=== PATIENT | male | born 1945 | race Caucasian/White ===

== ENCOUNTER 2019-10-06 11:35 | Inpatient (IN) | payer OTHER, MEDICARE, BC ==
[2019-10-06 12:10] LABS: ANION GAP 17.1 mEq/L (7-13)
[2019-10-06] MEDS: Sodium Chloride 0.9% 10 ML Syringe FLUSH PRN (12:23)
[2019-10-06] MEDS ORDERED: Sodium Chloride 0.9% 1,000 ML IV ONE (12:27)
--- NOTE | 2019-10-06 12:32 | EDM.PDOC ---
ED HPI GENERAL MEDICAL PROBLEM - General Chief Complaint: General Stated Complaint: UNKNOWN Time Seen by Provider: 10/06/19 12:10 Source of Information: Reports: Patient, RN, RN Notes Reviewed History Limitations: Reports: No Limitations - History of Present Illness INITIAL COMMENTS - FREE TEXT/NARRATIVE: patient presents to the ER with complaint o since last Wednesday, headache, runny nose, cough, shortness of breath at times. Patient denies smoking, denies COPD, admits to having asthma. Patient states fever has gotten up to 103. patient denies any recent travel or exposure to anyone with COVID19. Patient states he has had burning with urination, as well as flank pain for the past few days. Onset: Gradual Generalized Pain Score (Numeric/FACES): 3 - Related Data Allergies Allergy/AdvReac Type Severity Reaction Status Date / Time No Known Allergies Allergy Verified 10/06/19 11:43 Home Meds: Home Meds Albuterol [Proventil HFA] 2 puff INH BID 10/06/19 [History] Budesonide/Formoterol Fumarate [Budesonide-Formoterol 160-4.5] 10.2 gm IH BID [History] Flunisolide 1 gm MC BID 10/06/19 [History] Latanoprost 1 drop EYEBOTH DAILY 10/06/19 [History] Omeprazole 20 mg PO DAILY 10/06/19 [History] Triamcinolone Acetonide [Triamcinolone Acetonide 0.5%] 15 gm .XX ASDIRECTED PRN 10/06/19 [History] metFORMIN [Glucophage XR] 1,000 mg PO DAILY 10/06/19 [History] Past Medical History HEENT History: Reports: Hard of Hearing, Impaired Vision 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 Cardiovascular History: Reports: Heart Valve Replacement, High Cholesterol Other Cardiovascular History: valvue replacement [id number] Respiratory History: Reports: Asthma Gastrointestinal History: Reports: GERD Genitourinary History: Reports: None Other Neuro History: Benign brain tumor/ Surgery 1982 and 1985 Psychiatric History: Reports: None Endocrine/Metabolic History: Reports: Diabetes, Type II Hematologic History: Reports: None Immunologic History: Reports: None Oncologic (Cancer) History: Reports: Prostate - Past Surgical History Other HEENT Surgeries/Procedures: Previous cleft lip surgery Other Cardiovascular Surgeries/Procedures: Trifecta bovine pericardial valve Social & Family History - Tobacco Use Smoking Status *Q: Never Smoker - Recreational Drug Use Recreational Drug Use: No ED ROS GENERAL - Review of Systems Review Of Systems: Comprehensive ROS is negative, except as noted in HPI. ED EXAM, GENERAL - Physical Exam Exam: See Below Exam Limited By: No Limitations General Appearance: Alert, WD/WN, No Apparent Distress Eye Exam: Bilateral Eye: EOMI, Normal Inspection Ears: Normal External Exam, Hearing Grossly Normal Nose: Normal Inspection, Other (post cleft lip repair) Throat/Mouth: Normal Inspection, Other (Post cleft lip/palate repair) Head: Atraumatic, Normocephalic Neck: Normal Inspection, Supple, Non-Tender, Full Range of Motion Respiratory/Chest: No Respiratory Distress, Lungs Clear, Normal Breath Sounds, No Accessory Muscle Use, Chest Non-Tender Cardiovascular: Normal Peripheral Pulses, Regular Rate, Rhythm, No Edema, No Gallop, No JVD, No Murmur, No Rub Peripheral Pulses: 2+: Radial (L), Radial (R) GI/Abdominal: Normal Bowel Sounds, Soft, Non-Tender, No Organomegaly, No Distention, No Abnormal Bruit, No Mass (Male) Exam: Deferred Rectal (Males) Exam: Deferred Back Exam: Normal Inspection, Full Range of Motion, CVA Tenderness (L), CVA Tenderness (R) Extremities: Normal Inspection, Normal Range of Motion, Non-Tender, Normal Capillary Refill, No Pedal Edema Neurological: Alert, Oriented, CN II-XII Intact, Normal Cognition, Normal Gait, Normal Reflexes, No Motor/Sensory Deficits Psychiatric: Normal Affect, Normal Mood Skin Exam: Warm, Dry, Intact, Normal Color, No Rash Lymphatic: No Adenopathy Course - Vital Signs Last Recorded V/S: Last Vital Signs Temp 100.3 F 10/06/19 11:44 Pulse 112 H 10/06/19 11:44 Resp 18 10/06/19 11:44 BP 136/69 10/06/19 11:44 Pulse Ox 98 10/06/19 11:44 - Orders/Labs/Meds Orders: Active Orders 24 hr Category Date Time Status Peripheral IV Care [RC] . DIRECTED Care 10/06/19 11:33 Active Chest wo Cont [CT] Urgent Exams 10/06/19 11:33 Taken CORONAVIRUS COVID-19 PCR PHL [MREF] Stat Lab 10/06/19 12:47 Received CULTURE BLOOD [BC] Stat Lab 10/06/19 11:45 Received CULTURE BLOOD [BC] Stat Lab 10/06/19 11:46 Received CULTURE URINE [RM] Stat Lab 10/06/19 12:01 Received D Dimer [D-DIMER QUANTITATIVE] [COAG] Stat Lab 10/06/19 11:45 Received INFLUENZA A+B AG SCREEN [RM] Stat Lab 10/06/19 11:32 Ordered LACTATE DEHYDROGENASE,LDH [CHEM] Stat Lab 10/06/19 11:45 Received Sodium Chloride 0.9% [Saline Flush] Med 10/06/19 11:33 Active 10 ml FLUSH ASDIRECTED PRN Blood Culture x2 Reflex Set [OM.PC] Stat Oth 10/06/19 11:32 Ordered Isolation [COMM] Routine Oth 10/06/19 11:33 Active Peripheral IV Insertion Adult [OM.PC] Stat Oth 10/06/19 11:32 Ordered Medication Orders Sodium Chloride (Saline Flush) 10 ml FLUSH ASDIRECTED PRN PRN Reason: Keep Vein Open Last Admin: 10/06/19 12:23 Dose: 10 ml Labs: Laboratory Tests 10/06/19 10/06/19 10/06/19 Range/Units 11:45 11:45 11:45 WBC 15.6 H (5.0-10.0) 10^3/uL RBC 4.49 L (4.6-6.2) 10^6/uL Hgb 13.8 L (14.0-18.0) g/dL Hct 39.3 L (40.0-54.0) % MCV 87.5 (80-100) fL MCH 30.7 (27.0-34.0) pg MCHC 35.1 H (33.0-35.0) g/dL Plt Count 183 (150-450) 10^3/uL Neut % (Auto) 94.8 H (42.2-75.2) % Lymph % (Auto) 1.7 L (20.5-50.1) % [place] % (Auto) 3.0 (2-8) % Eos % (Auto) 0.3 L (1.0-3.0) % Baso % (Auto) 0.2 (0.0-1.0) % Sodium 137 (136-145) mmol/L Potassium 4.1 (3.5-5.1) mmol/L Chloride 100 (98-107) mmol/L Carbon Dioxide 24 (21-32) mmol/L Anion Gap 17.1 H (7-13) mEq/L BUN 26 H (7-18) mg/dL Creatinine 1.26 (0.70-1.30) mg/dL Est Cr Clr Drug Dosing 51.50 mL/min Estimated GFR (MDRD) 56 BUN/Creatinine Ratio 20.6 (No establ ref range) Glucose 258 H (74-99) mg/dL Lactic Acid 2.7 H* (0.4-2.0) mmol/L Calcium 8.7 (8.5-10.1) mg/dL Total Bilirubin 0.4 (0.2-1.0) mg/dL AST 29 (15-37) U/L ALT 48 (16-63) U/L Alkaline Phosphatase 87 (46-116) U/L B-Natriuretic Peptide (0-100) pg/ml Total Protein 6.9 (6.4-8.2) g/dL Albumin 3.1 L (3.4-5.0) g/dL Globulin 3.8 Albumin/Globulin Ratio 0.82 Urine Color (YELLOW) Urine Appearance (CLEAR) Urine pH (5.0-9.0) Ur Specific [place] (1.005-1.030) Urine Protein (NEGATIVE) Urine Glucose (UA) (NEGATIVE) Urine Ketones (NEGATIVE) Urine Occult Blood (NEGATIVE) Urine Nitrite (NEGATIVE) Urine Bilirubin (NEGATIVE) Urine Urobilinogen (0.2-1.0) mg/dL Ur Leukocyte Esterase (NEGATIVE) Urine RBC /HPF Urine WBC (0-5/HPF) /HPF Ur Epithelial Cells (NOT SEEN) /HPF Amorphous Sediment (NOT SEEN) /HPF Urine Bacteria (0-FEW/HPF) /HPF Urine Mucus (NOT SEEN) /LPF 10/06/19 10/06/19 Range/Units 11:45 12:01 WBC (5.0-10.0) 10^3/uL RBC (4.6-6.2) 10^6/uL Hgb (14.0-18.0) g/dL Hct (40.0-54.0) % MCV (80-100) fL MCH (27.0-34.0) pg MCHC (33.0-35.0) g/dL Plt Count (150-450) 10^3/uL Neut % (Auto) (42.2-75.2) % Lymph % (Auto) (20.5-50.1) % [place] % (Auto) (2-8) % Eos % (Auto) (1.0-3.0) % Baso % (Auto) (0.0-1.0) % Sodium (136-145) mmol/L Potassium (3.5-5.1) mmol/L Chloride (98-107) mmol/L Carbon Dioxide (21-32) mmol/L Anion Gap (7-13) mEq/L BUN (7-18) mg/dL Creatinine (0.70-1.30) mg/dL Est Cr Clr Drug Dosing mL/min Estimated GFR (MDRD) BUN/Creatinine Ratio (No establ ref range) Glucose (74-99) mg/dL Lactic Acid (0.4-2.0) mmol/L Calcium (8.5-10.1) mg/dL Total Bilirubin (0.2-1.0) mg/dL AST (15-37) U/L ALT (16-63) U/L Alkaline Phosphatase (46-116) U/L B-Natriuretic Peptide 108 H (0-100) pg/ml Total Protein (6.4-8.2) g/dL Albumin (3.4-5.0) g/dL Globulin Albumin/Globulin Ratio Urine Color Dark yellow (YELLOW) Urine Appearance Cloudy (CLEAR) Urine pH 5.5 (5.0-9.0) Ur Specific [place] 1.025 (1.005-1.030) Urine Protein 100 H (NEGATIVE) Urine Glucose (UA) 500 H (NEGATIVE) Urine Ketones Trace H (NEGATIVE) Urine Occult Blood Large H (NEGATIVE) Urine Nitrite Positive H (NEGATIVE) Urine Bilirubin Negative (NEGATIVE) Urine Urobilinogen 0.2 (0.2-1.0) mg/dL Ur Leukocyte Esterase Small H (NEGATIVE) Urine RBC >100 H /HPF Urine WBC >100 H (0-5/HPF) /HPF Ur Epithelial Cells Few (NOT SEEN) /HPF Amorphous Sediment Not seen (NOT SEEN) /HPF Urine Bacteria Many H (0-FEW/HPF) /HPF Urine Mucus Not seen (NOT SEEN) /LPF Meds: Medications Generic Name Dose Route Start Last Admin Trade Name Freq PRN Reason Stop Dose Admin Sodium Chloride 10 ml 10/06/19 11:33 10/06/19 12:23 Saline Flush FLUSH 10 ml ASDIRECTED PRN Administration Keep Vein Open Discontinued Medications Generic Name Dose Route Start Last Admin Trade Name Freq PRN Reason Stop Dose Admin Sodium Chloride 1,000 mls @ 999 mls/hr 10/06/19 12:27 10/06/19 13:17 Normal Saline IV 10/06/19 13:27 250 mls/hr .BOLUS ONE Infusion Ceftriaxone Sodium 1 gm/ 50 mls @ 100 mls/hr 10/06/19 12:48 10/06/19 13:02 Sodium Chloride IV 10/06/19 13:17 100 mls/hr ONETIME ONE Administration - Radiology Interpretation Free Text/Narrative:: Chest CT wo contrast: FINDINGS: Lungs: No pneumonia or pulmonary edema. There is a 4 mm noncalcified nodule in the right upper lobe (series 5, image 11). Pleural space: No pleural effusion or pneumothorax. Heart: The heart is not enlarged. No pericardial effusion. There is coronary artery disease. 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 The descending thoracic aorta at the same level has a diameter of 2.5 cm. Prior aortic valve replacement. Lymph nodes: No pathologically enlarged lymph nodes. Bones/joints: Healed median sternotomy. Soft tissues: No acute soft tissue abnormality. IMPRESSION: 1. No pneumonia. 2. Right upper lobe nodule. For patients at low risk (minimal or absent history of smoking and of other known risk factors), no routine follow-up is indicated. For patients at high risk (history of smoking or of other known risk factors), consider optional CT at 12 months. (David et al. , Fleischner Society, 2017) Thank you for allowing us to participate in the care of your patient. Dictated and Authenticated by: Hipolito Mauricio MD 10/06/2019 12:27 PM Central Time ([place] & [place]) See rad report Departure - Departure Time of Disposition: 14:09 Disposition: Admitted As Inpatient 64 Condition: Fair Clinical Impression: UTI, Urinary tract infectious disease - Discharge Information *PRESCRIPTION DRUG MONITORING PROGRAM REVIEWED*: No *COPY OF PRESCRIPTION DRUG MONITORING REPORT IN PATIENT [place]: No Sepsis Event Note - Evaluation Sepsis Screening Result: No Definite Risk - Focused Exam Vital Signs: Vital Signs Temp Pulse Resp BP Pulse Ox 10/06/19 11:44 100.3 F 112 H 18 136/69 98 Date Exam was Performed: 10/06/19 Time Exam was Performed: 13:58 - My Orders Last 24 Hours: My Active Orders 10/06/19 11:32 INFLUENZA A+B AG SCREEN [RM] Stat Blood Culture x2 Reflex Set [OM.PC] Stat Peripheral IV Insertion Adult [OM.PC] Stat 10/06/19 11:33 Peripheral IV Care [RC] . DIRECTED Chest wo Cont [CT] Urgent Sodium Chloride 0.9% [Saline Flush] 10 ml FLUSH ASDIRECTED PRN Isolation [COMM] Routine 10/06/19 11:45 CULTURE BLOOD [BC] Stat D Dimer [D-DIMER QUANTITATIVE] [COAG] Stat LACTATE DEHYDROGENASE,LDH [CHEM] Stat 10/06/19 11:46 CULTURE BLOOD [BC] Stat 10/06/19 12:01 CULTURE URINE [RM] Stat 10/06/19 12:47 CORONAVIRUS COVID-19 PCR PHL [MREF] Stat - Assessment/Plan Last 24 Hours: My Active Orders 10/06/19 11:32 INFLUENZA A+B AG SCREEN [RM] Stat Blood Culture x2 Reflex Set [OM.PC] Stat Peripheral IV Insertion Adult [OM.PC] Stat 10/06/19 11:33 Peripheral IV Care [RC] . DIRECTED Chest wo Cont [CT] Urgent Sodium Chloride 0.9% [Saline Flush] 10 ml FLUSH ASDIRECTED PRN Isolation [COMM] Routine 10/06/19 11:45 CULTURE BLOOD [BC] Stat D Dimer [D-DIMER QUANTITATIVE] [COAG] Stat LACTATE DEHYDROGENASE,LDH [CHEM] Stat 10/06/19 11:46 CULTURE BLOOD [BC] Stat 10/06/19 12:01 CULTURE URINE [RM] Stat 10/06/19 12:47 CORONAVIRUS COVID-19 PCR PHL [MREF] Stat
[2019-10-06] MEDS ORDERED: cefTRIAXone 1 GM in Sodium Chloride 0.9% 50 ML IV ONE (12:48)
[2019-10-06] MEDS ORDERED: Ondansetron 4 MG/2 ML SDV IVPUSH PRN (14:47)
[2019-10-06] MEDS ORDERED: Albuterol 0.083% 2.5 MG/3 ML Neb Soln NEB PRN (14:47)
[2019-10-06] MEDS ORDERED: Magnesium Hydroxide 400 MG/5 ML Susp 30 ML Cup PO PRN (14:47)
[2019-10-06] MEDS ORDERED: Docusate Sodium 100 MG Cap PO PRN (14:47)
[2019-10-06] MEDS ORDERED: Azithromycin 500 MG in Sodium Chloride 0.9% 250 ML IV SCH (15:00)
--- NOTE | 2019-10-06 15:00 | PCM.HP ---
H&P History of Present Illness - General Date of Service: 10/06/19 Admit Problem/Dx: Admission Diagnosis/Problem Admission Diagnosis/Problem UTI, Urinary tract infectious disease Source of Information: Patient History Limitations: Reports: No Limitations - History of Present Illness Initial Comments - Free Text/Narative: Laya is a 74-year-old male with past medical history of diabetes type 2, asthma, recently diagnosis prostate cancer. He presented to the ED for evaluation fever, headache, runny nose, cough, shortness of breath x 4 to 5 days. Patient reportedly he has been well until 2 days ago and above started. He reports headache, fever on and off, chills on and off, runny nose, cough productive of whitish sputum and shortness of breath. No wheezing. Fevers is relieved with Tylenol. Denies sick contacts or recent travel. No myalgia, arthralgia. He denies abdominal pain, nausea, vomiting, diarrhea. No chest pain. He was seen in the outpatient setting and treated for flu. He says symptoms resolved and recurred today. He had a fever spike of 103F. He endorsed dysuria, frequency. No hematuria. He decided to come to the ED for further management. In the ED was tachycardic, temperature 100.3F. Labs revealed leukocytosis, WBC 16, low lymphocytes, d-dimer 2240, BUN elevated, crt1.26, lactic acid elevated at 2.7. LDH elevated at 194. Urine positive for nitrites CT chest without contrast negative for acute infiltrates. No groundglass opacities noted. Onset of Symptoms: Reports: Gradual Duration of Symptoms: Reports: Day(s): Location: Reports: Chest Quality: Reports: Ache Severity: Mild Improves with: Reports: None Worsens with: Reports: None Associated Symptoms: Reports: Cough, cough w sputum, Fever/Chills, Headaches, Shortness of Breath Generalized Pain Score (Numeric/FACES): 3 - Related Data Allergies/Adverse Reactions: Allergies Allergy/AdvReac Type Severity Reaction Status Date / Time No Known Allergies Allergy Verified 10/06/19 15:00 Home Medications: Home Meds Budesonide/Formoterol Fumarate [Budesonide-Formoterol 160-4.5] 2 puff IH BID [History] Finasteride 5 mg PO DAILY 10/06/19 [History] Latanoprost 1 drop EYEBOTH DAILY 10/06/19 [History] Multivitamin with Minerals [Multiple Vitamin] 1 tab PO DAILY 10/06/19 [History] Omeprazole 20 mg PO DAILY 10/06/19 [History] Propylene Glycol [Systane Complete] 1 drop EYEBOTH DAILY 10/06/19 [History] Ranitidine [Zantac] 300 mg PO DAILY 10/06/19 [History] atorvaSTATin Calcium [Atorvastatin Calcium] 5 mg PO BEDTIME 10/06/19 [History] metFORMIN HCl [Metformin HCl ER] 1,000 mg PO DAILY 10/06/19 [History] Past Medical History HEENT History: Reports: Hard of Hearing, Impaired Vision 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 Cardiovascular History: Reports: Heart Valve Replacement, High Cholesterol Other Cardiovascular History: valvue replacement [id number] Respiratory History: Reports: Asthma Gastrointestinal History: Reports: GERD Genitourinary History: Reports: None Other Neuro History: Benign brain tumor/ Surgery 1982 and 1985 Psychiatric History: Reports: None Endocrine/Metabolic History: Reports: Diabetes, Type II Hematologic History: Reports: None Immunologic History: Reports: None Oncologic (Cancer) History: Reports: Prostate - Past Surgical History Other HEENT Surgeries/Procedures: Previous cleft lip surgery Other Cardiovascular Surgeries/Procedures: Trifecta bovine pericardial valve Social & Family History - Tobacco Use Smoking Status *Q: Never Smoker - Recreational Drug Use Recreational Drug Use: No H&P Review of Systems - Review of Systems: Review Of Systems: See Below General: Reports: Fever, Chills, Weakness, Fatigue, Decreased Appetite HEENT: Reports: Headaches, Rhinitis, Sinus Congestion Pulmonary: Reports: Shortness of Breath, Cough, Sputum Cardiovascular: Reports: No Symptoms Gastrointestinal: Reports: No Symptoms Genitourinary: Reports: No Symptoms Musculoskeletal: Reports: No Symptoms Skin: Reports: No Symptoms Psychiatric: Reports: No Symptoms Neurological: Reports: No Symptoms Hematologic/Lymphatic: Reports: No Symptoms Immunologic: Reports: No Symptoms Exam - Exam Exam: See Below - Vital Signs Vital Signs: Last Vital Signs Temp 98.6 F 10/06/19 14:04 Pulse 86 10/06/19 14:04 Resp 18 10/06/19 14:04 BP 124/74 10/06/19 14:04 Pulse Ox 97 10/06/19 14:04 Weight: 161 lb 3.2 oz - Exam Quality Assessment: Supplemental Oxygen, DVT Prophylaxis General: Alert, Oriented, 4 HEENT: PERRLA, Hearing Intact, Mucosa Moist & [place], Nares Patent, Normal Nasal Septum, Posterior Pharynx Clear, Conjunctiva Clear, EOMI, EACs Clear, TMs Clear Neck: Supple, Trachea Midline, 2 Lungs: Clear to Auscultation, Normal Respiratory Effort Cardiovascular: Regular Rate, Regular Rhythm GI/Abdominal Exam: Normal Bowel Sounds, Soft, Non-Tender, No Organomegaly, No Distention, No Abnormal Bruit, No Mass, Pelvis Stable (Male) Exam: No Hernia, Normal Inspection, Normal Prostate, Circumcised Rectal (Males) Exam: Normal Exam, Normal Rectal Tone, Prostate Normal Back Exam: Normal Inspection, Full Range of Motion, NT Extremities: Normal Inspection, Normal Range of Motion, Non-Tender, No Pedal Edema, Normal Capillary Refill Skin: Warm, Dry, Intact Neurological: Cranial Nerves Intact, Reflexes Equal Bilateral Neuro Extensive - Mental Status: Alert, Oriented x3, Normal Mood/Affect, Normal Cognition Neuro Extensive - Motor, Sensory, Reflexes: CN II-XII Intact, Normal Gait, Normal Reflexes Psychiatric: Alert, Normal Affect, Normal Mood - Patient Data Lab Results Last 24 hrs: Laboratory Results - last 24 hr 10/06/19 10/06/19 10/06/19 Range/Units 11:45 11:45 11:45 WBC 15.6 H (5.0-10.0) 10^3/uL RBC 4.49 L (4.6-6.2) 10^6/uL Hgb 13.8 L (14.0-18.0) g/dL Hct 39.3 L (40.0-54.0) % MCV 87.5 (80-100) fL MCH 30.7 (27.0-34.0) pg MCHC 35.1 H (33.0-35.0) g/dL Plt Count 183 (150-450) 10^3/uL Neut % (Auto) 94.8 H (42.2-75.2) % Lymph % (Auto) 1.7 L (20.5-50.1) % [place] % (Auto) 3.0 (2-8) % Eos % (Auto) 0.3 L (1.0-3.0) % Baso % (Auto) 0.2 (0.0-1.0) % D-Dimer, Quantitative (0-400) ng/mL Sodium 137 (136-145) mmol/L Potassium 4.1 (3.5-5.1) mmol/L Chloride 100 (98-107) mmol/L Carbon Dioxide 24 (21-32) mmol/L Anion Gap 17.1 H (7-13) mEq/L BUN 26 H (7-18) mg/dL Creatinine 1.26 (0.70-1.30) mg/dL Est Cr Clr Drug Dosing 51.50 mL/min Estimated GFR (MDRD) 56 BUN/Creatinine Ratio 20.6 (No establ ref range) Glucose 258 H (74-99) mg/dL Lactic Acid 2.7 H* (0.4-2.0) mmol/L Calcium 8.7 (8.5-10.1) mg/dL Total Bilirubin 0.4 (0.2-1.0) mg/dL AST 29 (15-37) U/L ALT 48 (16-63) U/L Alkaline Phosphatase 87 (46-116) U/L Lactate Dehydrogenase (85-227) U/L B-Natriuretic Peptide (0-100) pg/ml Total Protein 6.9 (6.4-8.2) g/dL Albumin 3.1 L (3.4-5.0) g/dL Globulin 3.8 Albumin/Globulin Ratio 0.82 Urine Color (YELLOW) Urine Appearance (CLEAR) Urine pH (5.0-9.0) Ur Specific [place] (1.005-1.030) Urine Protein (NEGATIVE) Urine Glucose (UA) (NEGATIVE) Urine Ketones (NEGATIVE) Urine Occult Blood (NEGATIVE) Urine Nitrite (NEGATIVE) Urine Bilirubin (NEGATIVE) Urine Urobilinogen (0.2-1.0) mg/dL Ur Leukocyte Esterase (NEGATIVE) Urine RBC /HPF Urine WBC (0-5/HPF) /HPF Ur Epithelial Cells (NOT SEEN) /HPF Amorphous Sediment (NOT SEEN) /HPF Urine Bacteria (0-FEW/HPF) /HPF Urine Mucus (NOT SEEN) /LPF 10/06/19 10/06/19 10/06/19 Range/Units 11:45 11:45 11:45 WBC (5.0-10.0) 10^3/uL RBC (4.6-6.2) 10^6/uL Hgb (14.0-18.0) g/dL Hct (40.0-54.0) % MCV (80-100) fL MCH (27.0-34.0) pg MCHC (33.0-35.0) g/dL Plt Count (150-450) 10^3/uL Neut % (Auto) (42.2-75.2) % Lymph % (Auto) (20.5-50.1) % [place] % (Auto) (2-8) % Eos % (Auto) (1.0-3.0) % Baso % (Auto) (0.0-1.0) % D-Dimer, Quantitative 2240 H (0-400) ng/mL Sodium (136-145) mmol/L Potassium (3.5-5.1) mmol/L Chloride (98-107) mmol/L Carbon Dioxide (21-32) mmol/L Anion Gap (7-13) mEq/L BUN (7-18) mg/dL Creatinine (0.70-1.30) mg/dL Est Cr Clr Drug Dosing mL/min Estimated GFR (MDRD) BUN/Creatinine Ratio (No establ ref range) Glucose (74-99) mg/dL Lactic Acid (0.4-2.0) mmol/L Calcium (8.5-10.1) mg/dL Total Bilirubin (0.2-1.0) mg/dL AST (15-37) U/L ALT (16-63) U/L Alkaline Phosphatase (46-116) U/L Lactate Dehydrogenase 194 (85-227) U/L B-Natriuretic Peptide 108 H (0-100) pg/ml Total Protein (6.4-8.2) g/dL Albumin (3.4-5.0) g/dL Globulin Albumin/Globulin Ratio Urine Color (YELLOW) Urine Appearance (CLEAR) Urine pH (5.0-9.0) Ur Specific [place] (1.005-1.030) Urine Protein (NEGATIVE) Urine Glucose (UA) (NEGATIVE) Urine Ketones (NEGATIVE) Urine Occult Blood (NEGATIVE) Urine Nitrite (NEGATIVE) Urine Bilirubin (NEGATIVE) Urine Urobilinogen (0.2-1.0) mg/dL Ur Leukocyte Esterase (NEGATIVE) Urine RBC /HPF Urine WBC (0-5/HPF) /HPF Ur Epithelial Cells (NOT SEEN) /HPF Amorphous Sediment (NOT SEEN) /HPF Urine Bacteria (0-FEW/HPF) /HPF Urine Mucus (NOT SEEN) /LPF 10/06/19 Range/Units 12:01 WBC (5.0-10.0) 10^3/uL RBC (4.6-6.2) 10^6/uL Hgb (14.0-18.0) g/dL Hct (40.0-54.0) % MCV (80-100) fL MCH (27.0-34.0) pg MCHC (33.0-35.0) g/dL Plt Count (150-450) 10^3/uL Neut % (Auto) (42.2-75.2) % Lymph % (Auto) (20.5-50.1) % [place] % (Auto) (2-8) % Eos % (Auto) (1.0-3.0) % Baso % (Auto) (0.0-1.0) % D-Dimer, Quantitative (0-400) ng/mL Sodium (136-145) mmol/L Potassium (3.5-5.1) mmol/L Chloride (98-107) mmol/L Carbon Dioxide (21-32) mmol/L Anion Gap (7-13) mEq/L BUN (7-18) mg/dL Creatinine (0.70-1.30) mg/dL Est Cr Clr Drug Dosing mL/min Estimated GFR (MDRD) BUN/Creatinine Ratio (No establ ref range) Glucose (74-99) mg/dL Lactic Acid (0.4-2.0) mmol/L Calcium (8.5-10.1) mg/dL Total Bilirubin (0.2-1.0) mg/dL AST (15-37) U/L ALT (16-63) U/L Alkaline Phosphatase (46-116) U/L Lactate Dehydrogenase (85-227) U/L B-Natriuretic Peptide (0-100) pg/ml Total Protein (6.4-8.2) g/dL Albumin (3.4-5.0) g/dL Globulin Albumin/Globulin Ratio Urine Color Dark yellow (YELLOW) Urine Appearance Cloudy (CLEAR) Urine pH 5.5 (5.0-9.0) Ur Specific [place] 1.025 (1.005-1.030) Urine Protein 100 H (NEGATIVE) Urine Glucose (UA) 500 H (NEGATIVE) Urine Ketones Trace H (NEGATIVE) Urine Occult Blood Large H (NEGATIVE) Urine Nitrite Positive H (NEGATIVE) Urine Bilirubin Negative (NEGATIVE) Urine Urobilinogen 0.2 (0.2-1.0) mg/dL Ur Leukocyte Esterase Small H (NEGATIVE) Urine RBC >100 H /HPF Urine WBC >100 H (0-5/HPF) /HPF Ur Epithelial Cells Few (NOT SEEN) /HPF Amorphous Sediment Not seen (NOT SEEN) /HPF Urine Bacteria Many H (0-FEW/HPF) /HPF Urine Mucus Not seen (NOT SEEN) /LPF Result Diagrams: 10/06/19 11:45 10/06/19 11:45 - Problem List (1) Sepsis SNOMED Code(s): 71916209 ICD Code: A41.9 - SEPSIS, UNSPECIFIED ORGANISM Status: Acute Current Visit: Yes (2) Upper respiratory infection with cough and congestion SNOMED Code(s): 00772608, 586471744 ICD Code: J06.9 - ACUTE UPPER RESPIRATORY INFECTION, UNSPECIFIED Status: Acute Current Visit: Yes Problem List Initiated/Reviewed/Updated: Yes Orders Last 24hrs: Active Orders 24 hr Category Date Time Status Admission Diagnosis [ADT] Stat ADT 10/06/19 13:37 Ordered Admission Status [Patient Status] [ADT] Routine ADT 10/06/19 13:37 Active Ambulate [RC] ASDIRECTED Care 10/06/19 14:47 Ordered Blood Glucose Check, Bedside [RC] QIDACANDBED Care 10/06/19 14:47 Ordered Height and Weight [RC] DAILY Care 10/06/19 14:47 Ordered Intake and Output [RC] QSHIFT Care 10/06/19 14:47 Ordered Notify Provider Vital Signs [RC] ASDIRECTED Care 10/06/19 14:48 Ordered Oxygen Therapy [RC] PRN Care 10/06/19 14:47 Ordered Peripheral IV Care [RC] 09,21 Care 10/06/19 11:33 Active Pulse Oximetry [RC] PRN Care 10/06/19 14:48 Ordered RT Aerosol Therapy [RC] ASDIRECTED Care 10/06/19 14:50 Ordered VTE/DVT Education [RC] PER UNIT ROUTINE Care 10/06/19 14:47 Ordered Vital Signs [RC] Q4H Care 10/06/19 14:47 Ordered OT Evaluation and Treatment [CONS] Routine Cons 10/06/19 14:47 Ordered PT Evaluation and Treatment [CONS] Routine Cons 10/06/19 14:47 Ordered Respiratory Care Assess and Treatment [CONS] Routine Cons 10/06/19 14:47 Ordered Consistent Carbohydrate Diet [DIET] Diet 10/06/19 Dinner Ordered CBC W/O DIFF,HEMOGRAM [HEME] DAILY Lab 10/07/19 07:00 Ordered CBC W/O DIFF,HEMOGRAM [HEME] DAILY Lab 10/08/19 07:00 Ordered CBC W/O DIFF,HEMOGRAM [HEME] DAILY Lab 10/09/19 07:00 Ordered COMPREHENSIVE METABOLIC PN,CMP [CHEM] DAILY Lab 10/07/19 07:00 Ordered COMPREHENSIVE METABOLIC PN,CMP [CHEM] DAILY Lab 10/08/19 07:00 Ordered COMPREHENSIVE METABOLIC PN,CMP [CHEM] DAILY Lab 10/09/19 07:00 Ordered CORONAVIRUS COVID-19 PCR PHL [MREF] Stat Lab 10/06/19 12:47 Received CRP, HIGH SENSITIVITY [REF] Routine Lab 10/06/19 14:45 Ordered CULTURE BLOOD [BC] Stat Lab 10/06/19 11:45 Received CULTURE BLOOD [BC] Stat Lab 10/06/19 11:46 Received CULTURE URINE [RM] Stat Lab 10/06/19 12:01 Received FERRITIN [CHEM] Routine Lab 10/06/19 14:45 Ordered LACTIC ACID [CHEM] Q4H Lab 10/06/19 18:00 Ordered LACTIC ACID [CHEM] Q4H Lab 10/06/19 22:00 Ordered MAGNESIUM [CHEM] Routine Lab 10/06/19 14:47 Ordered PHOSPHORUS [CHEM] Routine Lab 10/06/19 14:47 Ordered PROCALCITONIN [REF] Routine Lab 10/06/19 14:46 Ordered Acetaminophen [Tylenol] Med 10/06/19 14:47 Ordered 650 mg PO Q4H PRN Albuterol [Proventil Neb Soln] Med 10/06/19 14:47 Ordered 2.5 mg NEB Q4H PRN Azithromycin [Zithromax] 500 mg Med 10/06/19 15:00 Ordered Sodium Chloride 0.9% [Normal Saline (AdvBag)] 250 ml IV Q24H Docusate Sodium [Colace] Med 10/06/19 14:47 Ordered 100 mg PO BID PRN Enoxaparin [Lovenox] Med 10/07/19 09:00 Ordered 40 mg SUBCUT DAILY Insulin Glarg,Human.Rec.Analog [LantUS] Med 10/06/19 21:00 Ordered 10 unit SUBCUT BEDTIME Insulin Lispro [HumaLOG] Med 10/06/19 18:00 Ordered 5 unit SUBCUT WITHMEALSANDBED Magnesium Hydroxide [Milk of Magnesia] Med 10/06/19 14:47 Ordered 30 ml PO Q12H PRN Ondansetron [Zofran] Med 10/06/19 14:47 Ordered 4 mg IVPUSH Q6H PRN Sodium Chloride 0.9% [Normal Saline] 1,000 ml Med 10/06/19 15:00 Ordered IV ASDIRECTED Sodium Chloride 0.9% [Saline Flush] Med 10/06/19 11:33 Active 10 ml FLUSH ASDIRECTED PRN cefTRIAXone [Rocephin] 1 gm Med 10/07/19 07:00 Ordered Sodium Chloride 0.9% [Normal Saline] 100 ml IV Q24H Blood Culture x2 Reflex Set [OM.PC] Stat Ot 10/06/19 11:32 Ordered Isolation [COMM] Routine Oth 10/06/19 11:33 Active Peripheral IV Insertion Adult [OM.PC] Stat Oth 10/06/19 11:32 Ordered Resuscitation Status Routine Resus Stat 10/06/19 14:47 Ordered Medication Orders Acetaminophen (Tylenol) 650 mg PO Q4H PRN PRN Reason: Pain (Mild 1-3)/fever Albuterol (Proventil Neb Soln) 2.5 mg NEB Q4H PRN PRN Reason: shortness of breath/wheezing Docusate Sodium (Colace) 100 mg PO BID PRN PRN Reason: Constipation Enoxaparin Sodium (Lovenox) 40 mg SUBCUT DAILY [place] Sodium Chloride (Normal Saline) 1,000 mls @ 100 mls/hr IV ASDIRECTED [place] Azithromycin 500 mg/ Sodium (Chloride) 250 mls @ 250 mls/hr IV Q24H [place] Ceftriaxone Sodium 1 gm/ (Sodium Chloride) 100 mls @ 200 mls/hr IV Q24H [place] Insulin Glargine (Lantus) 10 unit SUBCUT BEDTIME [place] Insulin Human Lispro (Humalog) 5 unit SUBCUT WITHMEALSANDBED [place] Magnesium Hydroxide (Milk Of Magnesia) 30 ml PO Q12H PRN PRN Reason: Constipation Ondansetron HCl (Zofran) 4 mg IVPUSH Q6H PRN PRN Reason: Nausea/Vomiting Sodium Chloride (Saline Flush) 10 ml FLUSH ASDIRECTED PRN PRN Reason: Keep Vein Open Last Admin: 10/06/19 12:23 Dose: 10 ml Assessment/Plan Comment:: #Acute upper respiratory infection -Patient presented to the ED for evaluation of nasal congestion, productive cough, shortness of headache and fever up -He denies myalgia, arthralgia -Resent influenza test was negative -He has leukocytosis, low lymphocytes, elevated LDH, d-dimer elevated -Chest CT no infiltrates. No groundglass opacities in -Admit to medical floor -Nasopharyngeal swab for COVID-19 PCR -Send for CRP, ferritin level -Contact and droplet isolation -Supportive care; IV fluid, supplemental oxygen -Azithromycin #Sepsis due to UTI -Evidenced by tachycardia, tachypnea, fever, leukocytosis, elevated lactic acid , UA positive for nitrites -Sepsis protocol -Serial lactic acid every 4 hourly 2 -IV fluids -Blood culture, urine culture -IV ceftriaxone #Type 2 diabetes -Suboptimally controlled -Patient on metformin. Hold for now -Sliding scale insulin -Glargine daily at bedtime -Accu-Cheks -Hypoglycemia. #History of asthma -Not in exacerbation -Albuterol every 4 hours when necessary #History of prostate cancer -No acute tissue #Carbohydrate consistent #DNI/DNR
[2019-10-06] MEDS ORDERED: Albuterol 6.7 GM Inhaler INH PRN (15:52)
[2019-10-06] MEDS ORDERED: Sodium Chloride 0.9% 1,000 ML IV SCH (16:00)
[2019-10-06] MEDS: Sodium Chloride 0.9% 1,000 ML IV SCH (17:35)
[2019-10-06] MEDS: Insulin Lispro 100 Units/ML 3 ML Vial SUBCUT SCH ×2 (17:50→21:19)
[2019-10-06] MEDS: Acetaminophen 325 MG Tab PO PRN (17:54)
[2019-10-06] MEDS: Formoterol/Mometasone 200-5 MCG 8.8 GM Inhaler IH SCH (21:18)
[2019-10-06] MEDS: Insulin Glarg,Human.Rec.Analog 100 Unit/ML SUBCUT SCH (21:19)
[2019-10-06] MEDS: atorvaSTATin 10 MG Tab PO SCH (21:21)
[2019-10-07] MEDS: Piperacillin/Tazobactam 3.375 GM in Sodium Chloride 0.9% 100 ML IV SCH ×5 (00:37→23:32)
[2019-10-07] MEDS: Acetaminophen 325 MG Tab PO PRN ×3 (00:45→20:50)
[2019-10-07] MEDS: Sodium Chloride 0.9% 1,000 ML IV SCH ×2 (03:35→14:17)
[2019-10-07] MEDS: Omeprazole 20 MG Cap.CR PO SCH (05:52)
[2019-10-07 07:15] LABS: ANION GAP 12.8 mEq/L (7-13)
[2019-10-07] MEDS: Insulin Lispro 100 Units/ML 3 ML Vial SUBCUT SCH ×4 (08:28→21:58)
[2019-10-07] MEDS: Formoterol/Mometasone 200-5 MCG 8.8 GM Inhaler IH SCH ×2 (08:31→20:43)
[2019-10-07] MEDS: Enoxaparin 40 MG/0.4 ML Syringe SUBCUT SCH (08:42)
[2019-10-07] MEDS: Finasteride 5 MG Tab PO SCH (08:42)
[2019-10-07] MEDS: Famotidine 20 MG Tab PO SCH ×2 (08:42→20:42)
[2019-10-07] MEDS ORDERED: Latanoprost 0.005% Ophth Soln 2.5 ML Bottle EYEBOTH SCH (09:00)
[2019-10-07] MEDS ORDERED: cefTRIAXone 1 GM in Sodium Chloride 0.9% 100 ML IV SCH (12:00)
--- NOTE | 2019-10-07 12:14 | PCM.PN ---
- General Info Date of Service: 10/07/19 Admission Dx/Problem (Free Text): Admission Diagnosis/Problem Admission Diagnosis/Problem UTI, Urinary tract infectious disease Subjective Update: Laya is a 74-year-old male with past medical history of diabetes type 2, asthma, recently diagnosis prostate cancer. He presented to the ED for evaluation fever, headache, runny nose, cough, shortness of breath x 4 to 5 days. He was found to have sepsis due to UTI with bacteremia. CT chest was negative. Blood culture was a 2 for gram-negative shira. Urine culture positive for gram-negative rods. He was started on IV Zosyn. Today patient was seen and examined. He is doing okay. He endorsed feeling better. He has no new complaints. He denies fever, chills, nausea, vomiting. He has no cough or shortness of breath. Says his respiratory symptoms have improved. Storm virus COVID-19 PCR pending Functional Status: Reports: Pain Controlled - Review of Systems General: Reports: No Symptoms HEENT: Reports: No Symptoms Pulmonary: Reports: No Symptoms Cardiovascular: Reports: No Symptoms Gastrointestinal: Reports: No Symptoms Genitourinary: Reports: No Symptoms Musculoskeletal: Reports: No Symptoms Skin: Reports: No Symptoms Neurological: Reports: No Symptoms Psychiatric: Reports: No Symptoms - Patient Data Vitals - Most Recent: Last Vital Signs Temp 98.2 F 10/07/19 08:00 Pulse 73 10/07/19 08:00 Resp 20 10/07/19 08:00 BP 113/66 10/07/19 08:00 Pulse Ox 97 10/07/19 08:00 Weight - Most Recent: 146 lb I&O - Last 24 Hours: Intake & Output 10/06/19 10/07/19 10/07/19 22:59 06:59 14:59 Intake Total 240 1700 300 Balance 240 1700 300 Lab Results Last 24 Hours: Laboratory Results - last 24 hr 10/06/19 10/06/19 10/06/19 Range/Units 11:45 11:45 11:45 WBC (5.0-10.0) 10^3/uL RBC (4.6-6.2) 10^6/uL Hgb (14.0-18.0) g/dL Hct (40.0-54.0) % MCV (80-100) fL MCH (27.0-34.0) pg MCHC (33.0-35.0) g/dL Plt Count (150-450) 10^3/uL D-Dimer, Quantitative (0-400) ng/mL Sodium 137 (136-145) mmol/L Potassium 4.1 (3.5-5.1) mmol/L Chloride 100 (98-107) mmol/L Carbon Dioxide 24 (21-32) mmol/L Anion Gap 17.1 H (7-13) mEq/L BUN 26 H (7-18) mg/dL Creatinine 1.26 (0.70-1.30) mg/dL Est Cr Clr Drug Dosing 51.50 mL/min Estimated GFR (MDRD) 56 BUN/Creatinine Ratio 20.6 (No establ ref range) Glucose 258 H (74-99) mg/dL POC Glucose (83-110) mg/dl Lactic Acid 2.7 H* (0.4-2.0) mmol/L Calcium 8.7 (8.5-10.1) mg/dL Phosphorus (2.6-4.7) mg/dL Magnesium (1.8-2.4) mg/dL Ferritin (26-388) mg/mL Total Bilirubin 0.4 (0.2-1.0) mg/dL AST 29 (15-37) U/L ALT 48 (16-63) U/L Alkaline Phosphatase 87 (46-116) U/L Lactate Dehydrogenase (85-227) U/L C-Reactive Protein (0.0-0.9) mg/dL B-Natriuretic Peptide 108 H (0-100) pg/ml Total Protein 6.9 (6.4-8.2) g/dL Albumin 3.1 L (3.4-5.0) g/dL Globulin 3.8 Albumin/Globulin Ratio 0.82 Urine Color (YELLOW) Urine Appearance (CLEAR) Urine pH (5.0-9.0) Ur Specific [place] (1.005-1.030) Urine Protein (NEGATIVE) Urine Glucose (UA) (NEGATIVE) Urine Ketones (NEGATIVE) Urine Occult Blood (NEGATIVE) Urine Nitrite (NEGATIVE) Urine Bilirubin (NEGATIVE) Urine Urobilinogen (0.2-1.0) mg/dL Ur Leukocyte Esterase (NEGATIVE) Urine RBC /HPF Urine WBC (0-5/HPF) /HPF Ur Epithelial Cells (NOT SEEN) /HPF Amorphous Sediment (NOT SEEN) /HPF Urine Bacteria (0-FEW/HPF) /HPF Urine Mucus (NOT SEEN) /LPF 10/06/19 10/06/19 10/06/19 Range/Units 11:45 11:45 11:45 WBC (5.0-10.0) 10^3/uL RBC (4.6-6.2) 10^6/uL Hgb (14.0-18.0) g/dL Hct (40.0-54.0) % MCV (80-100) fL MCH (27.0-34.0) pg MCHC (33.0-35.0) g/dL Plt Count (150-450) 10^3/uL D-Dimer, Quantitative 2240 H (0-400) ng/mL Sodium (136-145) mmol/L Potassium (3.5-5.1) mmol/L Chloride (98-107) mmol/L Carbon Dioxide (21-32) mmol/L Anion Gap (7-13) mEq/L BUN (7-18) mg/dL Creatinine (0.70-1.30) mg/dL Est Cr Clr Drug Dosing mL/min Estimated GFR (MDRD) BUN/Creatinine Ratio (No establ ref range) Glucose (74-99) mg/dL POC Glucose (83-110) mg/dl Lactic Acid (0.4-2.0) mmol/L Calcium (8.5-10.1) mg/dL Phosphorus (2.6-4.7) mg/dL Magnesium (1.8-2.4) mg/dL Ferritin 248 (26-388) mg/mL Total Bilirubin (0.2-1.0) mg/dL AST (15-37) U/L ALT (16-63) U/L Alkaline Phosphatase (46-116) U/L Lactate Dehydrogenase 194 (85-227) U/L C-Reactive Protein (0.0-0.9) mg/dL B-Natriuretic Peptide (0-100) pg/ml Total Protein (6.4-8.2) g/dL Albumin (3.4-5.0) g/dL Globulin Albumin/Globulin Ratio Urine Color (YELLOW) Urine Appearance (CLEAR) Urine pH (5.0-9.0) Ur Specific [place] (1.005-1.030) Urine Protein (NEGATIVE) Urine Glucose (UA) (NEGATIVE) Urine Ketones (NEGATIVE) Urine Occult Blood (NEGATIVE) Urine Nitrite (NEGATIVE) Urine Bilirubin (NEGATIVE) Urine Urobilinogen (0.2-1.0) mg/dL Ur Leukocyte Esterase (NEGATIVE) Urine RBC /HPF Urine WBC (0-5/HPF) /HPF Ur Epithelial Cells (NOT SEEN) /HPF Amorphous Sediment (NOT SEEN) /HPF Urine Bacteria (0-FEW/HPF) /HPF Urine Mucus (NOT SEEN) /LPF 10/06/19 10/06/19 10/06/19 Range/Units 11:45 12:01 16:30 WBC (5.0-10.0) 10^3/uL RBC (4.6-6.2) 10^6/uL Hgb (14.0-18.0) g/dL Hct (40.0-54.0) % MCV (80-100) fL MCH (27.0-34.0) pg MCHC (33.0-35.0) g/dL Plt Count (150-450) 10^3/uL D-Dimer, Quantitative (0-400) ng/mL Sodium (136-145) mmol/L Potassium (3.5-5.1) mmol/L Chloride (98-107) mmol/L Carbon Dioxide (21-32) mmol/L Anion Gap (7-13) mEq/L BUN (7-18) mg/dL Creatinine (0.70-1.30) mg/dL Est Cr Clr Drug Dosing mL/min Estimated GFR (MDRD) BUN/Creatinine Ratio (No establ ref range) Glucose (74-99) mg/dL POC Glucose (83-110) mg/dl Lactic Acid (0.4-2.0) mmol/L Calcium (8.5-10.1) mg/dL Phosphorus 1.2 L (2.6-4.7) mg/dL Magnesium 1.6 L (1.8-2.4) mg/dL Ferritin (26-388) mg/mL Total Bilirubin (0.2-1.0) mg/dL AST (15-37) U/L ALT (16-63) U/L Alkaline Phosphatase (46-116) U/L Lactate Dehydrogenase (85-227) U/L C-Reactive Protein 33.4 H (0.0-0.9) mg/dL B-Natriuretic Peptide (0-100) pg/ml Total Protein (6.4-8.2) g/dL Albumin (3.4-5.0) g/dL Globulin Albumin/Globulin Ratio Urine Color Dark yellow (YELLOW) Urine Appearance Cloudy (CLEAR) Urine pH 5.5 (5.0-9.0) Ur Specific [place] 1.025 (1.005-1.030) Urine Protein 100 H (NEGATIVE) Urine Glucose (UA) 500 H (NEGATIVE) Urine Ketones Trace H (NEGATIVE) Urine Occult Blood Large H (NEGATIVE) Urine Nitrite Positive H (NEGATIVE) Urine Bilirubin Negative (NEGATIVE) Urine Urobilinogen 0.2 (0.2-1.0) mg/dL Ur Leukocyte Esterase Small H (NEGATIVE) Urine RBC >100 H /HPF Urine WBC >100 H (0-5/HPF) /HPF Ur Epithelial Cells Few (NOT SEEN) /HPF Amorphous Sediment Not seen (NOT SEEN) /HPF Urine Bacteria Many H (0-FEW/HPF) /HPF Urine Mucus Not seen (NOT SEEN) /LPF 10/06/19 10/06/19 10/06/19 Range/Units 16:30 17:22 21:16 WBC (5.0-10.0) 10^3/uL RBC (4.6-6.2) 10^6/uL Hgb (14.0-18.0) g/dL Hct (40.0-54.0) % MCV (80-100) fL MCH (27.0-34.0) pg MCHC (33.0-35.0) g/dL Plt Count (150-450) 10^3/uL D-Dimer, Quantitative (0-400) ng/mL Sodium (136-145) mmol/L Potassium (3.5-5.1) mmol/L Chloride (98-107) mmol/L Carbon Dioxide (21-32) mmol/L Anion Gap (7-13) mEq/L BUN (7-18) mg/dL Creatinine (0.70-1.30) mg/dL Est Cr Clr Drug Dosing mL/min Estimated GFR (MDRD) BUN/Creatinine Ratio (No establ ref range) Glucose (74-99) mg/dL POC Glucose 162 H 132 H (83-110) mg/dl Lactic Acid 1.3 (0.4-2.0) mmol/L Calcium (8.5-10.1) mg/dL Phosphorus (2.6-4.7) mg/dL Magnesium (1.8-2.4) mg/dL Ferritin (26-388) mg/mL Total Bilirubin (0.2-1.0) mg/dL AST (15-37) U/L ALT (16-63) U/L Alkaline Phosphatase (46-116) U/L Lactate Dehydrogenase (85-227) U/L C-Reactive Protein (0.0-0.9) mg/dL B-Natriuretic Peptide (0-100) pg/ml Total Protein (6.4-8.2) g/dL Albumin (3.4-5.0) g/dL Globulin Albumin/Globulin Ratio Urine Color (YELLOW) Urine Appearance (CLEAR) Urine pH (5.0-9.0) Ur Specific [place] (1.005-1.030) Urine Protein (NEGATIVE) Urine Glucose (UA) (NEGATIVE) Urine Ketones (NEGATIVE) Urine Occult Blood (NEGATIVE) Urine Nitrite (NEGATIVE) Urine Bilirubin (NEGATIVE) Urine Urobilinogen (0.2-1.0) mg/dL Ur Leukocyte Esterase (NEGATIVE) Urine RBC /HPF Urine WBC (0-5/HPF) /HPF Ur Epithelial Cells (NOT SEEN) /HPF Amorphous Sediment (NOT SEEN) /HPF Urine Bacteria (0-FEW/HPF) /HPF Urine Mucus (NOT SEEN) /LPF 10/07/19 10/07/19 10/07/19 Range/Units 06:28 06:28 08:00 WBC 10.7 H (5.0-10.0) 10^3/uL RBC 3.92 L (4.6-6.2) 10^6/uL Hgb 12.0 L D (14.0-18.0) g/dL Hct 34.8 L (40.0-54.0) % MCV 88.8 (80-100) fL MCH 30.6 (27.0-34.0) pg MCHC 34.5 (33.0-35.0) g/dL Plt Count 154 (150-450) 10^3/uL D-Dimer, Quantitative (0-400) ng/mL Sodium 138 (136-145) mmol/L Potassium 3.8 (3.5-5.1) mmol/L Chloride 102 (98-107) mmol/L Carbon Dioxide 27 (21-32) mmol/L Anion Gap 12.8 (7-13) mEq/L BUN 16 (7-18) mg/dL Creatinine 1.21 (0.70-1.30) mg/dL Est Cr Clr Drug Dosing 48.65 mL/min Estimated GFR (MDRD) 58 BUN/Creatinine Ratio 13.2 (No establ ref range) Glucose 155 H (74-99) mg/dL POC Glucose 161 H (83-110) mg/dl Lactic Acid (0.4-2.0) mmol/L Calcium 7.9 L (8.5-10.1) mg/dL Phosphorus (2.6-4.7) mg/dL Magnesium (1.8-2.4) mg/dL Ferritin (26-388) mg/mL Total Bilirubin 0.4 (0.2-1.0) mg/dL AST 32 (15-37) U/L ALT 43 (16-63) U/L Alkaline Phosphatase 70 (46-116) U/L Lactate Dehydrogenase (85-227) U/L C-Reactive Protein (0.0-0.9) mg/dL B-Natriuretic Peptide (0-100) pg/ml Total Protein 6.2 L (6.4-8.2) g/dL Albumin 2.6 L (3.4-5.0) g/dL Globulin 3.6 Albumin/Globulin Ratio 0.72 Urine Color (YELLOW) Urine Appearance (CLEAR) Urine pH (5.0-9.0) Ur Specific [place] (1.005-1.030) Urine Protein (NEGATIVE) Urine Glucose (UA) (NEGATIVE) Urine Ketones (NEGATIVE) Urine Occult Blood (NEGATIVE) Urine Nitrite (NEGATIVE) Urine Bilirubin (NEGATIVE) Urine Urobilinogen (0.2-1.0) mg/dL Ur Leukocyte Esterase (NEGATIVE) Urine RBC /HPF Urine WBC (0-5/HPF) /HPF Ur Epithelial Cells (NOT SEEN) /HPF Amorphous Sediment (NOT SEEN) /HPF Urine Bacteria (0-FEW/HPF) /HPF Urine Mucus (NOT SEEN) /LPF [facility] Results Last 24 Hours: Microbiology 10/06/19 12:01 Urine Culture - Preliminary Urine, Voided 10/06/19 11:45 Aerobic Blood Culture - Preliminary Blood - Venous Anaerobic Blood Culture - Preliminary 10/06/19 11:46 Aerobic Blood Culture - Preliminary Blood - Venous - Lab Draw Anaerobic Blood Culture - Preliminary Med Orders - Current: Current Medications Acetaminophen (Tylenol) 650 mg PO Q4H PRN PRN Reason: Pain (Mild 1-3)/fever Last Admin: 10/07/19 05:52 Dose: 650 mg Albuterol (Proventil Hfa) 0 gm INH Q4H PRN PRN Reason: Shortness of Breath Atorvastatin Calcium (Lipitor) 5 mg PO BEDTIME [facility] Last Admin: 10/06/19 21:21 Dose: 5 mg Docusate Sodium (Colace) 100 mg PO BID PRN PRN Reason: Constipation Enoxaparin Sodium (Lovenox) 40 mg SUBCUT DAILY [facility] Last Admin: 10/07/19 08:42 Dose: Not Given Famotidine (Pepcid) 20 mg PO BID [facility] Last Admin: 10/07/19 08:42 Dose: 20 mg Finasteride (Proscar) 5 mg PO DAILY [facility] Last Admin: 10/07/19 08:42 Dose: 5 mg Sodium Chloride (Normal Saline) 1,000 mls @ 100 mls/hr IV ASDIRECTED [facility] Last Admin: 10/07/19 03:35 Dose: 100 mls/hr Piperacillin Sod/Tazobactam (Sod 3.375 gm/ Sodium Chloride) 100 mls @ 200 mls/ hr IV Q6H [facility] Last Admin: 10/07/19 12:03 Dose: 200 mls/hr Insulin Glargine (Lantus) 10 unit SUBCUT BEDTIME [facility] Last Admin: 10/06/19 21:19 Dose: 10 units Insulin Human Lispro (Humalog) 5 unit SUBCUT QIDACANDBED [facility] Last Admin: 10/07/19 12:04 Dose: 5 units Latanoprost (Xalatan 0.005% Ophth Soln) 0 ml EYEBOTH BEDTIME [facility] Magnesium Hydroxide (Milk Of Magnesia) 30 ml PO Q12H PRN PRN Reason: Constipation Mometasone Furoate/Formoterol Fumar (Dulera 200-5 Mcg) 2 puff IH BID [facility] Last Admin: 10/07/19 08:31 Dose: 2 puff Omeprazole (Omeprazole) 20 mg PO DAILY@0600 [facility] Last Admin: 10/07/19 05:52 Dose: 20 mg Ondansetron HCl (Zofran) 4 mg IVPUSH Q6H PRN PRN Reason: Nausea/Vomiting Sodium Chloride (Saline Flush) 10 ml FLUSH ASDIRECTED PRN PRN Reason: Keep Vein Open Last Admin: 10/06/19 12:23 Dose: 10 ml Discontinued Medications Albuterol (Proventil Neb Soln) 2.5 mg NEB Q4H PRN PRN Reason: shortness of breath/wheezing Sodium Chloride (Normal Saline) 1,000 mls @ 999 mls/hr IV .BOLUS ONE Stop: 10/06/19 13:27 Last Infusion: 10/06/19 13:17 Dose: 250 mls/hr Ceftriaxone Sodium 1 gm/ (Sodium Chloride) 50 mls @ 100 mls/hr IV ONETIME ONE Stop: 10/06/19 13:17 Last Admin: 10/06/19 13:02 Dose: 100 mls/hr Azithromycin 500 mg/ Sodium (Chloride) 250 mls @ 250 mls/hr IV Q24H [facility] Last Admin: 10/06/19 17:36 Dose: 250 mls/hr Ceftriaxone Sodium 1 gm/ (Sodium Chloride) 100 mls @ 200 mls/hr IV Q24H [facility] Sodium Chloride (Normal Saline) 1,000 mls @ 999 mls/hr IV ASDIRECTED [facility] Stop: 10/06/19 17:01 Latanoprost (Xalatan 0.005% Ophth Soln) 0 ml EYEBOTH DAILY [facility] Last Admin: 10/07/19 08:32 Dose: Not Given - Exam Quality Assessment: DVT Prophylaxis General: Alert, Oriented HEENT: Pupils Equal, Pupils Reactive, EOMI, Mucous Membr. Moist/[place] Neck: Supple Lungs: Clear to Auscultation, Normal Respiratory Effort Cardiovascular: Regular Rate, Regular Rhythm GI/Abdominal Exam: Normal Bowel Sounds, Soft, Non-Tender, No Organomegaly, No Distention, No Abnormal Bruit, No Mass, Pelvis Stable (Male) Exam: No Hernia, Normal Inspection, Normal Prostate, Circumcised Back Exam: Normal Inspection, Full Range of Motion Extremities: Normal Inspection, Normal Range of Motion, Non-Tender, No Pedal Edema, Normal Capillary Refill Skin: Warm, Dry, Intact Wound/Incisions: Healing Well Neurological: No New Focal Deficit Psy/Mental Status: Alert, Normal Affect, Normal Mood Sepsis Event Note - Evaluation Sepsis Screening Result: No Definite Risk - Focused Exam Vital Signs: Vital Signs Temp Pulse Resp BP BP Pulse Ox 10/07/19 08:00 98.2 F 73 20 113/66 97 10/07/19 03:37 99.9 F 98 20 122/60 97 Date Exam was Performed: 10/07/19 Time Exam was Performed: 12:08 - Problem List & Annotations (1) Sepsis SNOMED Code(s): 11275197 Code(s): A41.9 - SEPSIS, UNSPECIFIED ORGANISM Status: Acute Current Visit : Yes (2) Upper respiratory infection with cough and congestion SNOMED Code(s): 96773343, 809234528 Code(s): J06.9 - ACUTE UPPER RESPIRATORY INFECTION, UNSPECIFIED Status: Acute Current Visit: Yes (3) Bacteremia SNOMED Code(s): 2264678 Code(s): R78.81 - BACTEREMIA Status: Acute Current Visit: Yes - Problem List Review Problem List Initiated/Reviewed/Updated: Yes - My Orders Last 24 Hours: My Active Orders 10/06/19 14:47 Ambulate [RC] ASDIRECTED Blood Glucose Check, Bedside [RC] QIDACANDBED Height and Weight [RC] 0600 Intake and Output [RC] QSHIFT Oxygen Therapy [RC] PRN VTE/DVT Education [RC] PER UNIT ROUTINE Vital Signs [RC] Q4H OT Evaluation and Treatment [CONS] Routine PT Evaluation and Treatment [CONS] Routine Respiratory Care Assess and Treatment [CONS] Routine Acetaminophen [Tylenol] 650 mg PO Q4H PRN Docusate Sodium [Colace] 100 mg PO BID PRN Magnesium Hydroxide [Milk of Magnesia] 30 ml PO Q12H PRN Ondansetron [Zofran] 4 mg IVPUSH Q6H PRN Resuscitation Status Routine 10/06/19 14:48 Notify Provider Vital Signs [RC] ASDIRECTED Pulse Oximetry [RC] PRN 10/06/19 14:50 RT Aerosol Therapy [RC] ASDIRECTED 10/06/19 15:00 Sodium Chloride 0.9% [Normal Saline] 1,000 ml IV ASDIRECTED 10/06/19 15:52 RT Post Treatment Assessment [RC] Click to Edit RT Pre-Treatment Assessment [RC] Click to Edit Albuterol [Proventil HFA] 0 gm INH Q4H PRN 10/06/19 16:30 PROCALCITONIN [REF] Routine 10/06/19 17:00 Insulin Lispro [HumaLOG] 5 unit SUBCUT QIDACANDBED 10/06/19 21:00 Insulin Glarg,Human.Rec.Analog [LantUS] 10 unit SUBCUT BEDTIME Mometasone/Formoterol [Dulera 200-5 MCG] 2 puff IH BID atorvaSTATin [Lipitor] 5 mg PO BEDTIME 10/06/19 23:45 Piperacillin/Tazobactam [Zosyn] 3.375 gm Sodium Chloride 0.9% [Normal Saline] 100 ml IV Q6H 10/06/19 23:55 Blood Culture x2 Reflex Set [OM.PC] Stat 10/06/19 Dinner Consistent Carbohydrate Diet [DIET] 10/07/19 06:00 Omeprazole 20 mg PO DAILY@0600 10/07/19 09:00 Enoxaparin [Lovenox] 40 mg SUBCUT DAILY Famotidine [Pepcid] 20 mg PO BID Finasteride [Proscar] 5 mg PO DAILY 10/07/19 21:00 Latanoprost [Xalatan 0.005% Ophth Soln] 0 ml EYEBOTH BEDTIME 10/08/19 07:00 CBC W/O DIFF,HEMOGRAM [HEME] DAILY COMPREHENSIVE METABOLIC PN,CMP [CHEM] DAILY 10/09/19 07:00 CBC W/O DIFF,HEMOGRAM [HEME] DAILY COMPREHENSIVE METABOLIC PN,CMP [CHEM] DAILY - Plan Plan:: #Sepsis due to UTI -Resolving -Continue IV fluids -Urine culture positive for gram negative rods -IV ceftriaxone #Gram negative bacteremia -Blood cx on admit 2 positive for gram-negative rods -Repeated blood culture in progress -Echocardiogram -Continue IV antibiotics #Acute upper respiratory infection -Improved -Resent influenza test was negative -He has leukocytosis, low lymphocytes, elevated LDH, d-dimer elevated -Chest CT no infiltrates. No groundglass opacities in -Nasopharyngeal swab for COVID-19 PCR in progress -Contact and droplet isolation -Supportive care; IV fluid, supplemental oxygen -Azithromycin #Type 2 diabetes -Suboptimally controlled -Patient on metformin. Hold for now -Sliding scale insulin -Glargine daily at bedtime -Accu-Cheks -Hypoglycemia. #History of asthma -Not in exacerbation -Albuterol every 4 hours when necessary #History of prostate cancer -No acute tissue #Carbohydrate consistent #DNI/DNR
[2019-10-07] MEDS: atorvaSTATin 10 MG Tab PO SCH (20:42)
[2019-10-07] MEDS: Latanoprost 0.005% Ophth Soln 2.5 ML Bottle EYEBOTH SCH (20:47)
[2019-10-07] MEDS: Insulin Glarg,Human.Rec.Analog 100 Unit/ML SUBCUT SCH (21:35)
[2019-10-08] MEDS: Sodium Chloride 0.9% 1,000 ML IV SCH (00:02)
[2019-10-08] MEDS: Acetaminophen 325 MG Tab PO PRN ×2 (04:36→20:02)
[2019-10-08] MEDS: Omeprazole 20 MG Cap.CR PO SCH (05:42)
[2019-10-08] MEDS: Piperacillin/Tazobactam 3.375 GM in Sodium Chloride 0.9% 100 ML IV SCH ×4 (05:43→23:47)
[2019-10-08 07:10] LABS: ANION GAP 14.4 mEq/L (7-13); CHLORIDE,CL 106 mmol/L (98-107); SODIUM,NA 141 mmol/L (136-145)
[2019-10-08] MEDS: Insulin Lispro 100 Units/ML 3 ML Vial SUBCUT SCH ×4 (08:09→21:32)
[2019-10-08] MEDS: Famotidine 20 MG Tab PO SCH ×2 (09:26→20:20)
[2019-10-08] MEDS: Enoxaparin 40 MG/0.4 ML Syringe SUBCUT SCH (09:26)
[2019-10-08] MEDS: Finasteride 5 MG Tab PO SCH (09:26)
[2019-10-08] MEDS: Formoterol/Mometasone 200-5 MCG 8.8 GM Inhaler IH SCH ×2 (09:26→20:19)
--- NOTE | 2019-10-08 10:57 | PCM.PN ---
- General Info Date of Service: 10/08/19 Admission Dx/Problem (Free Text): Admission Diagnosis/Problem Admission Diagnosis/Problem UTI, Urinary tract infectious disease Subjective Update: Laya is a 74-year-old male with past medical history of diabetes type 2, asthma, recently diagnosis prostate cancer. He presented to the ED for evaluation fever, headache, runny nose, cough, shortness of breath x 4 to 5 days. He was found to have sepsis due to UTI with bacteremia. CT chest was negative. Blood culture was a 2 for gram-negative shira. Urine culture positive for gram-negative rods. He was started on IV Zosyn. Today patient was seen and examined. He is doing okay. He has no new complaints. He denies fever, chills, nausea, vomiting. He has no cough or shortness of breath. Says his respiratory symptoms have improved. Braxton virus COVID-19 PCR negative. Functional Status: Reports: Pain Controlled - Review of Systems General: Reports: No Symptoms HEENT: Reports: No Symptoms Pulmonary: Reports: No Symptoms Cardiovascular: Reports: No Symptoms Gastrointestinal: Reports: No Symptoms Genitourinary: Reports: No Symptoms Musculoskeletal: Reports: No Symptoms Skin: Reports: No Symptoms Neurological: Reports: No Symptoms Psychiatric: Reports: No Symptoms - Patient Data Vitals - Most Recent: Last Vital Signs Temp 98.5 F 10/08/19 09:00 Pulse 58 L 10/08/19 09:00 Resp 16 10/08/19 09:00 BP 115/67 10/08/19 09:00 Pulse Ox 98 10/08/19 09:00 Weight - Most Recent: 162 lb 8 oz I&O - Last 24 Hours: Intake & Output 10/07/19 10/08/19 10/08/19 22:59 06:59 14:59 Intake Total 250 2850 589 Output Total 100 600 Balance 150 2250 589 Lab Results Last 24 Hours: Laboratory Results - last 24 hr 10/07/19 10/07/19 10/07/19 Range/Units 12:01 16:57 20:56 WBC (5.0-10.0) 10^3/uL RBC (4.6-6.2) 10^6/uL Hgb (14.0-18.0) g/dL Hct (40.0-54.0) % MCV (80-100) fL MCH (27.0-34.0) pg MCHC (33.0-35.0) g/dL Plt Count (150-450) 10^3/uL Sodium (136-145) mmol/L Potassium (3.5-5.1) mmol/L Chloride (98-107) mmol/L Carbon Dioxide (21-32) mmol/L Anion Gap (7-13) mEq/L BUN (7-18) mg/dL Creatinine (0.70-1.30) mg/dL Est Cr Clr Drug Dosing mL/min Estimated GFR (MDRD) BUN/Creatinine Ratio (No establ ref range) Glucose (74-99) mg/dL POC Glucose 182 H 147 H 124 H (83-110) mg/dl Calcium (8.5-10.1) mg/dL Total Bilirubin (0.2-1.0) mg/dL AST (15-37) U/L ALT (16-63) U/L Alkaline Phosphatase (46-116) U/L Total Protein (6.4-8.2) g/dL Albumin (3.4-5.0) g/dL Globulin Albumin/Globulin Ratio 10/08/19 10/08/19 10/08/19 Range/Units 06:25 06:25 07:53 WBC 8.4 (5.0-10.0) 10^3/uL RBC 3.69 L (4.6-6.2) 10^6/uL Hgb 11.1 L (14.0-18.0) g/dL Hct 32.3 L (40.0-54.0) % MCV 87.5 (80-100) fL MCH 30.1 (27.0-34.0) pg MCHC 34.4 (33.0-35.0) g/dL Plt Count 149 L (150-450) 10^3/uL Sodium 141 (136-145) mmol/L Potassium 3.4 L (3.5-5.1) mmol/L Chloride 106 (98-107) mmol/L Carbon Dioxide 24 (21-32) mmol/L Anion Gap 14.4 H (7-13) mEq/L BUN 12 (7-18) mg/dL Creatinine 1.00 (0.70-1.30) mg/dL Est Cr Clr Drug Dosing 64.89 mL/min Estimated GFR (MDRD) > 60 BUN/Creatinine Ratio 12.0 (No establ ref range) Glucose 142 H (74-99) mg/dL POC Glucose 130 H (83-110) mg/dl Calcium 7.1 L (8.5-10.1) mg/dL Total Bilirubin 0.4 (0.2-1.0) mg/dL AST 60 H (15-37) U/L ALT 77 H (16-63) U/L Alkaline Phosphatase 67 (46-116) U/L Total Protein 5.5 L (6.4-8.2) g/dL Albumin 2.2 L (3.4-5.0) g/dL Globulin 3.3 Albumin/Globulin Ratio 0.67 Eleazar Results Last 24 Hours: Microbiology 10/06/19 11:45 Aerobic Blood Culture - Preliminary Blood - Venous Anaerobic Blood Culture - Preliminary 10/06/19 11:46 Aerobic Blood Culture - Preliminary Blood - Venous - Lab Draw Anaerobic Blood Culture - Preliminary 10/06/19 12:01 Urine Culture - Final Urine, Voided Escherichia Coli Enterococcus Faecalis 10/06/19 00:25 Aerobic Blood Culture - Preliminary Blood - Venous - Lab Draw NO GROWTH AFTER 1 DAY Anaerobic Blood Culture - Preliminary NO GROWTH AFTER 1 DAY 10/06/19 00:20 Aerobic Blood Culture - Preliminary Blood - Venous NO GROWTH AFTER 1 DAY Anaerobic Blood Culture - Preliminary NO GROWTH AFTER 1 DAY Med Orders - Current: Current Medications Acetaminophen (Tylenol) 650 mg PO Q4H PRN PRN Reason: Pain (Mild 1-3)/fever Last Admin: 10/08/19 04:36 Dose: 650 mg Albuterol (Proventil Hfa) 0 gm INH Q4H PRN PRN Reason: Shortness of Breath Atorvastatin Calcium (Lipitor) 5 mg PO BEDTIME [facility] Last Admin: 10/07/19 20:42 Dose: 5 mg Docusate Sodium (Colace) 100 mg PO BID PRN PRN Reason: Constipation Enoxaparin Sodium (Lovenox) 40 mg SUBCUT DAILY [facility] Last Admin: 10/08/19 09:26 Dose: Not Given Famotidine (Pepcid) 20 mg PO BID [facility] Last Admin: 10/08/19 09:26 Dose: 20 mg Finasteride (Proscar) 5 mg PO DAILY [facility] Last Admin: 10/08/19 09:26 Dose: 5 mg Piperacillin Sod/Tazobactam (Sod 3.375 gm/ Sodium Chloride) 100 mls @ 200 mls/ hr IV Q6H [facility] Last Infusion: 10/08/19 06:14 Dose: Infused Insulin Glargine (Lantus) 10 unit SUBCUT BEDTIME [facility] Last Admin: 10/07/19 21:35 Dose: 10 units Insulin Human Lispro (Humalog) 5 unit SUBCUT QIDACANDBED [facility] Last Admin: 10/08/19 08:09 Dose: 5 units Latanoprost (Xalatan 0.005% Ophth Soln) 0 ml EYEBOTH BEDTIME [facility] Last Admin: 10/07/19 20:47 Dose: 1 drop Magnesium Hydroxide (Milk Of Magnesia) 30 ml PO Q12H PRN PRN Reason: Constipation Mometasone Furoate/Formoterol Fumar (Dulera 200-5 Mcg) 2 puff IH BID [facility] Last Admin: 10/08/19 09:26 Dose: 2 puff Omeprazole (Omeprazole) 20 mg PO DAILY@0600 [facility] Last Admin: 10/08/19 05:42 Dose: 20 mg Ondansetron HCl (Zofran) 4 mg IVPUSH Q6H PRN PRN Reason: Nausea/Vomiting Potassium Chloride (Klor-Con 10) 40 meq PO BIDMEALS [facility] Sodium Chloride (Saline Flush) 10 ml FLUSH ASDIRECTED PRN PRN Reason: Keep Vein Open Last Admin: 10/06/19 12:23 Dose: 10 ml Discontinued Medications Albuterol (Proventil Neb Soln) 2.5 mg NEB Q4H PRN PRN Reason: shortness of breath/wheezing Sodium Chloride (Normal Saline) 1,000 mls @ 999 mls/hr IV .BOLUS ONE Stop: 10/06/19 13:27 Last Infusion: 10/06/19 13:17 Dose: 250 mls/hr Ceftriaxone Sodium 1 gm/ (Sodium Chloride) 50 mls @ 100 mls/hr IV ONETIME ONE Stop: 10/06/19 13:17 Last Admin: 10/06/19 13:02 Dose: 100 mls/hr Sodium Chloride (Normal Saline) 1,000 mls @ 100 mls/hr IV ASDIRECTED [facility] Last Admin: 10/08/19 00:02 Dose: 100 mls/hr Azithromycin 500 mg/ Sodium (Chloride) 250 mls @ 250 mls/hr IV Q24H [facility] Last Admin: 10/06/19 17:36 Dose: 250 mls/hr Ceftriaxone Sodium 1 gm/ (Sodium Chloride) 100 mls @ 200 mls/hr IV Q24H [facility] Sodium Chloride (Normal Saline) 1,000 mls @ 999 mls/hr IV ASDIRECTED [facility] Stop: 10/06/19 17:01 Latanoprost (Xalatan 0.005% Ophth Soln) 0 ml EYEBOTH DAILY [facility] Last Admin: 10/07/19 08:32 Dose: Not Given - Exam Quality Assessment: DVT Prophylaxis General: Alert, Oriented HEENT: Pupils Equal, Pupils Reactive, EOMI, Mucous Membr. Moist/[place] Neck: Supple Lungs: Clear to Auscultation, Normal Respiratory Effort Cardiovascular: Regular Rate, Regular Rhythm GI/Abdominal Exam: Normal Bowel Sounds, Soft, Non-Tender, No Organomegaly, No Distention, No Abnormal Bruit, No Mass, Pelvis Stable (Male) Exam: No Hernia, Normal Inspection, Normal Prostate, Circumcised Back Exam: Normal Inspection, Full Range of Motion Extremities: Normal Inspection, Normal Range of Motion, Non-Tender, No Pedal Edema, Normal Capillary Refill Skin: Warm, Dry, Intact Wound/Incisions: Healing Well Neurological: No New Focal Deficit Psy/Mental Status: Alert, Normal Affect, Normal Mood Sepsis Event Note - Evaluation Sepsis Screening Result: No Definite Risk - Focused Exam Vital Signs: Vital Signs Temp Pulse Resp BP Pulse Ox 10/08/19 09:00 98.5 F 58 L 16 115/67 98 10/08/19 05:52 99.1 F 10/08/19 04:15 97.8 F 77 24 H 119/71 98 10/07/19 23:40 97.8 F 55 L 20 101/52 L 98 Date Exam was Performed: 10/08/19 Time Exam was Performed: 10:54 - Problem List & Annotations (1) Sepsis SNOMED Code(s): 87517371 Code(s): A41.9 - SEPSIS, UNSPECIFIED ORGANISM Status: Acute Current Visit : Yes (2) Upper respiratory infection with cough and congestion SNOMED Code(s): 66825967, 151001599 Code(s): J06.9 - ACUTE UPPER RESPIRATORY INFECTION, UNSPECIFIED Status: Acute Current Visit: Yes (3) Bacteremia SNOMED Code(s): 6371091 Code(s): R78.81 - BACTEREMIA Status: Acute Current Visit: Yes - Problem List Review Problem List Initiated/Reviewed/Updated: Yes - My Orders Last 24 Hours: My Active Orders 10/07/19 21:00 Latanoprost [Xalatan 0.005% Ophth Soln] 0 ml EYEBOTH BEDTIME 10/08/19 18:00 Potassium Chloride [Klor-Con 10] 40 meq PO BIDMEALS 10/09/19 07:00 CBC W/O DIFF,HEMOGRAM [HEME] DAILY COMPREHENSIVE METABOLIC PN,CMP [CHEM] DAILY - Plan Plan:: #Sepsis due to UTI -Resolving -Urine culture positive for gram negative rods -IV ceftriaxone #Gram negative bacteremia -Blood cx on admit 2 positive for gram-negative rods -Repeated blood culture negative day 2 -Echocardiogram -Continue IV antibiotics #Acute upper respiratory infection -Improved -Resent influenza test was negative -He has leukocytosis, low lymphocytes, elevated LDH, d-dimer elevated -Chest CT no infiltrates. No groundglass opacities in -Nasopharyngeal swab for COVID-19 PCR negative -Azithromycin #Type 2 diabetes -Suboptimally controlled -Patient on metformin. Hold for now -Sliding scale insulin -Glargine daily at bedtime -Accu-Cheks -Hypoglycemia. #History of asthma -Not in exacerbation -Albuterol every 4 hours when necessary #History of prostate cancer -No acute tissue #Carbohydrate consistent #DNI/DNR
[2019-10-08] MEDS: Potassium Chloride 10 MEQ Tab.ER PO SCH (17:40)
[2019-10-08] MEDS: atorvaSTATin 10 MG Tab PO SCH (20:20)
[2019-10-08] MEDS: Latanoprost 0.005% Ophth Soln 2.5 ML Bottle EYEBOTH SCH (20:21)
[2019-10-08] MEDS: Insulin Glarg,Human.Rec.Analog 100 Unit/ML SUBCUT SCH (21:36)
[2019-10-09] MEDS ORDERED: Sodium Chloride 0.9% 100 ML ONE (03:47)
[2019-10-09] MEDS: Omeprazole 20 MG Cap.CR PO SCH (05:41)
[2019-10-09] MEDS: Piperacillin/Tazobactam 3.375 GM in Sodium Chloride 0.9% 100 ML IV SCH ×4 (05:42→23:33)
[2019-10-09 06:59] LABS: CHLORIDE,CL 107 mmol/L (98-107); SODIUM,NA 143 mmol/L (136-145)
[2019-10-09] MEDS: Famotidine 20 MG Tab PO SCH ×2 (08:27→20:40)
[2019-10-09] MEDS: Finasteride 5 MG Tab PO SCH (08:27)
[2019-10-09] MEDS: Formoterol/Mometasone 200-5 MCG 8.8 GM Inhaler IH SCH ×2 (08:28→20:41)
[2019-10-09] MEDS: Enoxaparin 40 MG/0.4 ML Syringe SUBCUT SCH (08:28)
[2019-10-09] MEDS: Insulin Lispro 100 Units/ML 3 ML Vial SUBCUT SCH ×4 (08:29→21:11)
[2019-10-09] MEDS: Potassium Chloride 10 MEQ Tab.ER PO SCH ×2 (08:29→18:29)
--- NOTE | 2019-10-09 11:13 | PCM.PN ---
- General Info Date of Service: 10/09/19 Admission Dx/Problem (Free Text): Admission Diagnosis/Problem Admission Diagnosis/Problem UTI, Urinary tract infectious disease Subjective Update: Laya is a 74-year-old male with past medical history of diabetes type 2, asthma, recently diagnosis prostate cancer. He presented to the ED for evaluation fever, headache, runny nose, cough, shortness of breath x 4 to 5 days. He was found to have sepsis due to UTI with bacteremia. CT chest was negative. Blood culture was a 2 for gram-negative shira. Urine culture positive for gram-negative rods. He was started on IV Zosyn. Today patient was seen and examined. He is doing well. He has no new complaints. He denies fever, chills, nausea, vomiting. He has no cough or shortness of breath. Had a fever spike overnight. Vitals this AM stable. Functional Status: Reports: Pain Controlled - Review of Systems General: Reports: No Symptoms HEENT: Reports: No Symptoms Pulmonary: Reports: No Symptoms Cardiovascular: Reports: No Symptoms Gastrointestinal: Reports: No Symptoms Genitourinary: Reports: No Symptoms Musculoskeletal: Reports: No Symptoms Skin: Reports: No Symptoms Neurological: Reports: No Symptoms Psychiatric: Reports: No Symptoms - Patient Data Vitals - Most Recent: Last Vital Signs Temp 97 F 10/09/19 00:05 Pulse 50 L 10/09/19 00:05 Resp 18 10/09/19 00:05 BP 136/68 10/09/19 00:05 Pulse Ox 97 10/09/19 00:05 Weight - Most Recent: 164 lb I&O - Last 24 Hours: Intake & Output 10/08/19 10/09/19 10/09/19 22:59 06:59 14:59 Intake Total 240 102 Balance 240 102 Lab Results Last 24 Hours: Laboratory Results - last 24 hr 10/08/19 10/08/19 10/08/19 Range/Units 11:56 16:46 21:31 WBC (5.0-10.0) 10^3/uL RBC (4.6-6.2) 10^6/uL Hgb (14.0-18.0) g/dL Hct (40.0-54.0) % MCV (80-100) fL MCH (27.0-34.0) pg MCHC (33.0-35.0) g/dL Plt Count (150-450) 10^3/uL Sodium (136-145) mmol/L Potassium (3.5-5.1) mmol/L Chloride (98-107) mmol/L Carbon Dioxide (21-32) mmol/L Anion Gap (7-13) mEq/L BUN (7-18) mg/dL Creatinine (0.70-1.30) mg/dL Est Cr Clr Drug Dosing mL/min Estimated GFR (MDRD) BUN/Creatinine Ratio (No establ ref range) Glucose (74-99) mg/dL POC Glucose 148 H 212 H 119 H (83-110) mg/dl Calcium (8.5-10.1) mg/dL Total Bilirubin (0.2-1.0) mg/dL AST (15-37) U/L ALT (16-63) U/L Alkaline Phosphatase (46-116) U/L Total Protein (6.4-8.2) g/dL Albumin (3.4-5.0) g/dL Globulin Albumin/Globulin Ratio 10/09/19 10/09/19 10/09/19 Range/Units 06:05 06:05 08:06 WBC 8.7 (5.0-10.0) 10^3/uL RBC 3.71 L (4.6-6.2) 10^6/uL Hgb 11.2 L (14.0-18.0) g/dL Hct 32.5 L (40.0-54.0) % MCV 87.6 (80-100) fL MCH 30.2 (27.0-34.0) pg MCHC 34.5 (33.0-35.0) g/dL Plt Count 167 (150-450) 10^3/uL Sodium 143 (136-145) mmol/L Potassium 4.0 (3.5-5.1) mmol/L Chloride 107 (98-107) mmol/L Carbon Dioxide 25 (21-32) mmol/L Anion Gap 15.0 H (7-13) mEq/L BUN 9 (7-18) mg/dL Creatinine 0.93 (0.70-1.30) mg/dL Est Cr Clr Drug Dosing 69.77 mL/min Estimated GFR (MDRD) > 60 BUN/Creatinine Ratio 9.7 (No establ ref range) Glucose 124 H (74-99) mg/dL POC Glucose 118 H (83-110) mg/dl Calcium 7.7 L (8.5-10.1) mg/dL Total Bilirubin 0.4 (0.2-1.0) mg/dL AST 72 H (15-37) U/L ALT 104 H (16-63) U/L Alkaline Phosphatase 83 (46-116) U/L Total Protein 5.9 L (6.4-8.2) g/dL Albumin 2.4 L (3.4-5.0) g/dL Globulin 3.5 Albumin/Globulin Ratio 0.69 Eleazar Results Last 24 Hours: Microbiology 10/06/19 11:45 Aerobic Blood Culture - Final Blood - Venous Escherichia Coli Anaerobic Blood Culture - Final Escherichia Coli 10/06/19 11:46 Aerobic Blood Culture - Final Blood - Venous - Lab Draw Escherichia Coli Anaerobic Blood Culture - Final Escherichia Coli 10/06/19 00:25 Aerobic Blood Culture - Preliminary Blood - Venous - Lab Draw NO GROWTH AFTER 2 DAYS Anaerobic Blood Culture - Preliminary NO GROWTH AFTER 2 DAYS 10/06/19 00:20 Aerobic Blood Culture - Preliminary Blood - Venous NO GROWTH AFTER 2 DAYS Anaerobic Blood Culture - Preliminary NO GROWTH AFTER 2 DAYS 10/06/19 12:01 Urine Culture - Final Urine, Voided Escherichia Coli Enterococcus Faecalis Med Orders - Current: Current Medications Acetaminophen (Tylenol) 650 mg PO Q4H PRN PRN Reason: Pain (Mild 1-3)/fever Last Admin: 10/08/19 20:02 Dose: 650 mg Albuterol (Proventil Hfa) 0 gm INH Q4H PRN PRN Reason: Shortness of Breath Atorvastatin Calcium (Lipitor) 5 mg PO BEDTIME [facility] Last Admin: 10/08/19 20:20 Dose: 5 mg Docusate Sodium (Colace) 100 mg PO BID PRN PRN Reason: Constipation Enoxaparin Sodium (Lovenox) 40 mg SUBCUT DAILY [facility] Last Admin: 10/09/19 08:28 Dose: Not Given Famotidine (Pepcid) 20 mg PO BID [facility] Last Admin: 10/09/19 08:27 Dose: 20 mg Finasteride (Proscar) 5 mg PO DAILY [facility] Last Admin: 10/09/19 08:27 Dose: 5 mg Piperacillin Sod/Tazobactam (Sod 3.375 gm/ Sodium Chloride) 100 mls @ 200 mls/ hr IV Q6HR [facility] Insulin Glargine (Lantus) 10 unit SUBCUT BEDTIME [facility] Last Admin: 10/08/19 21:36 Dose: 10 units Insulin Human Lispro (Humalog) 5 unit SUBCUT QIDACANDBED [facility] Last Admin: 10/09/19 08:29 Dose: 5 units Latanoprost (Xalatan 0.005% Ophth Soln) 0 ml EYEBOTH BEDTIME [facility] Last Admin: 10/08/19 20:21 Dose: 1 drop Magnesium Hydroxide (Milk Of Magnesia) 30 ml PO Q12H PRN PRN Reason: Constipation Mometasone Furoate/Formoterol Fumar (Dulera 200-5 Mcg) 2 puff IH BID [facility] Last Admin: 10/09/19 08:28 Dose: 2 puff Omeprazole (Omeprazole) 20 mg PO DAILY@0600 [facility] Last Admin: 10/09/19 05:41 Dose: 20 mg Ondansetron HCl (Zofran) 4 mg IVPUSH Q6H PRN PRN Reason: Nausea/Vomiting Potassium Chloride (Klor-Con 10) 40 meq PO BIDMEALS [facility] Last Admin: 10/09/19 08:29 Dose: 40 meq Sodium Chloride (Saline Flush) 10 ml FLUSH ASDIRECTED PRN PRN Reason: Keep Vein Open Last Admin: 10/06/19 12:23 Dose: 10 ml Discontinued Medications Albuterol (Proventil Neb Soln) 2.5 mg NEB Q4H PRN PRN Reason: shortness of breath/wheezing Sodium Chloride (Normal Saline) 1,000 mls @ 999 mls/hr IV .BOLUS ONE Stop: 10/06/19 13:27 Last Infusion: 10/06/19 13:17 Dose: 250 mls/hr Ceftriaxone Sodium 1 gm/ (Sodium Chloride) 50 mls @ 100 mls/hr IV ONETIME ONE Stop: 10/06/19 13: Last Admin: 10/06/19 13:02 Dose: 100 mls/hr Sodium Chloride (Normal Saline) 1,000 mls @ 100 mls/hr IV ASDIRECTED [facility] Last Admin: 10/08/19 00:02 Dose: 100 mls/hr Azithromycin 500 mg/ Sodium (Chloride) 250 mls @ 250 mls/hr IV Q24H [facility] Last Admin: 10/06/19 17:36 Dose: 250 mls/hr Ceftriaxone Sodium 1 gm/ (Sodium Chloride) 100 mls @ 200 mls/hr IV Q24H [facility] Sodium Chloride (Normal Saline) 1,000 mls @ 999 mls/hr IV ASDIRECTED [facility] Stop: 10/06/19 17:01 Piperacillin Sod/Tazobactam (Sod 3.375 gm/ Sodium Chloride) 100 mls @ 200 mls/ hr IV Q6H [facility] Last Admin: 10/09/19 05:42 Dose: 200 mls/hr Sodium Chloride (Normal Saline) Confirm Administered Dose 100 mls @ as directed .ROUTE .STK-MED ONE Stop: 10/09/19 03:48 Last Admin: 10/09/19 04:31 Dose: Not Given Latanoprost (Xalatan 0.005% Ophth Soln) 0 ml EYEBOTH DAILY [facility] Last Admin: 10/07/19 08:32 Dose: Not Given Piperacillin Sod/Tazobactam Sod (Zosyn) Confirm Administered Dose 3.375 gm .ROUTE .STK-MED ONE Stop: 10/09/19 03:43 Last Admin: 10/09/19 04:30 Dose: Not Given - Exam Quality Assessment: DVT Prophylaxis General: Alert, Oriented HEENT: Pupils Equal, Pupils Reactive, EOMI, Mucous Membr. Moist/[place] Neck: Supple Lungs: Clear to Auscultation, Normal Respiratory Effort Cardiovascular: Regular Rate, Regular Rhythm GI/Abdominal Exam: Normal Bowel Sounds, Soft, Non-Tender, No Organomegaly, No Distention, No Abnormal Bruit, No Mass, Pelvis Stable (Male) Exam: No Hernia, Normal Inspection, Normal Prostate, Circumcised Back Exam: Normal Inspection, Full Range of Motion Extremities: Normal Inspection, Normal Range of Motion, Non-Tender, No Pedal Edema, Normal Capillary Refill Skin: Warm, Dry, Intact Wound/Incisions: Healing Well Neurological: No New Focal Deficit Psy/Mental Status: Alert, Normal Affect, Normal Mood Sepsis Event Note - Evaluation Sepsis Screening Result: No Definite Risk - Focused Exam Vital Signs: Vital Signs Temp Pulse Resp BP Pulse Ox 10/09/19 00:05 97 F 50 L 18 136/68 97 Date Exam was Performed: 10/09/19 Time Exam was Performed: 11:14 - Problem List & Annotations (1) Sepsis SNOMED Code(s): 77538847 Code(s): A41.9 - SEPSIS, UNSPECIFIED ORGANISM Status: Acute Current Visit : Yes (2) Upper respiratory infection with cough and congestion SNOMED Code(s): 62371131, 057782370 Code(s): J06.9 - ACUTE UPPER RESPIRATORY INFECTION, UNSPECIFIED Status: Acute Current Visit: Yes (3) Bacteremia SNOMED Code(s): 4490459 Code(s): R78.81 - BACTEREMIA Status: Acute Current Visit: Yes - Problem List Review Problem List Initiated/Reviewed/Updated: Yes - My Orders Last 24 Hours: My Active Orders 10/08/19 10:58 Code Status [Resuscitation Status] Routine 10/08/19 18:00 Potassium Chloride [Klor-Con 10] 40 meq PO BIDMEALS 10/09/19 12:00 Piperacillin/Tazobactam [Zosyn] 3.375 gm Sodium Chloride 0.9% [Normal Saline] 100 ml IV Q6HR - Plan Plan:: #Sepsis due to UTI -Resolving -Blood cx on admit 2 positive for gram-negative rods -Repeated blood culture negative day 3 -Urine culture positive for gram negative rods -Continue IV Zosyn #Gram negative bacteremia -Blood cx on admit 2 positive for gram-negative rods -Repeated blood culture negative day 2 -Echocardiogram -Continue IV antibiotics #Acute upper respiratory infection -Improved -Resent influenza test was negative -He has leukocytosis, low lymphocytes, elevated LDH, d-dimer elevated -Chest CT no infiltrates. No groundglass opacities in -Nasopharyngeal swab for COVID-19 PCR negative #Type 2 diabetes -Suboptimally controlled -Patient on metformin. Hold for now -Sliding scale insulin -Glargine daily at bedtime -Accu-Cheks -Hypoglycemia. #History of asthma -Not in exacerbation -Albuterol every 4 hours when necessary #History of prostate cancer -No acute tissue #Carbohydrate consistent #DNI/DNR
[2019-10-09] MEDS: atorvaSTATin 10 MG Tab PO SCH (20:39)
[2019-10-09] MEDS: Latanoprost 0.005% Ophth Soln 2.5 ML Bottle EYEBOTH SCH (20:40)
[2019-10-09] MEDS ORDERED: Tamsulosin 0.4 MG Cap.ER PO SCH (21:00)
[2019-10-09] MEDS: Insulin Glarg,Human.Rec.Analog 100 Unit/ML SUBCUT SCH (21:09)
[2019-10-09] MEDS: Sodium Chloride 0.9% 10 ML Syringe FLUSH PRN (23:32)
[2019-10-10] MEDS: Omeprazole 20 MG Cap.CR PO SCH (05:47)
[2019-10-10] MEDS: Piperacillin/Tazobactam 3.375 GM in Sodium Chloride 0.9% 100 ML IV SCH (05:47)
[2019-10-10] MEDS: Sodium Chloride 0.9% 10 ML Syringe FLUSH PRN (05:47)
[2019-10-10 08:14] VITALS: BP 111/69; PULSE 70
[2019-10-10] MEDS: Potassium Chloride 10 MEQ Tab.ER PO SCH (09:22)
[2019-10-10] MEDS: Formoterol/Mometasone 200-5 MCG 8.8 GM Inhaler IH SCH (09:23)
[2019-10-10] MEDS: Enoxaparin 40 MG/0.4 ML Syringe SUBCUT SCH (09:23)
[2019-10-10] MEDS: Insulin Lispro 100 Units/ML 3 ML Vial SUBCUT SCH ×2 (09:24→12:35)
[2019-10-10] MEDS: Famotidine 20 MG Tab PO SCH (09:24)
[2019-10-10] MEDS: Finasteride 5 MG Tab PO SCH (09:24)
--- NOTE | 2019-10-10 09:30 | PCM.DCSUM1 ---
Discharge Summary - Hospital Course Free Text/Narrative:: Laya is a 74-year-old male with past medical history of diabetes type 2, asthma, recently diagnosis prostate cancer. He presented to the ED for evaluation fever, headache, runny nose, cough, shortness of breath x 4 to 5 days. He was found to have sepsis due to UTI with bacteremia. CT chest was negative. Blood culture was positive for gram-negative shira 2 set out of 2. Urine culture was positive for gram-negative rods. He was managed with IV Zosyn with improvement. He was discharged in stable condition with plan to follow up with PCP. Diagnosis: Stroke: No - Discharge Data Discharge Date: 10/10/19 Discharge Disposition: Home, Self-Care 01 Condition: Good - Referral to Home Health Primary Care Physician: Vanessa Novak MD - Discharge Diagnosis/Problem(s) (1) Sepsis SNOMED Code(s): 38619992 ICD Code: A41.9 - SEPSIS, UNSPECIFIED ORGANISM Status: Acute Current Visit: Yes (2) Upper respiratory infection with cough and congestion SNOMED Code(s): 93525324, 483498571 ICD Code: J06.9 - ACUTE UPPER RESPIRATORY INFECTION, UNSPECIFIED Status: Acute Current Visit: Yes (3) Bacteremia SNOMED Code(s): 7678571 ICD Code: R78.81 - BACTEREMIA Status: Acute Current Visit: Yes - Patient Summary/Data Consults: Consultations 10/06/19 14:47 OT Evaluation and Treatment [CONS] Routine PT Evaluation and Treatment [CONS] Routine Respiratory Care Assess and Treatment [CONS] Routine - Patient Instructions Diet: Heart Healthy Diet Activity: As Tolerated Driving: May Drive Today Showering/Bathing: May Shower Notify Provider of: Fever, Nausea and/or Vomiting - Discharge Plan *PRESCRIPTION DRUG MONITORING PROGRAM REVIEWED*: No *COPY OF PRESCRIPTION DRUG MONITORING REPORT IN PATIENT [place]: No Prescriptions/Med Rec: Levofloxacin [Levaquin] 500 mg PO DAILY 7 Days #7 tablet Tamsulosin [Flomax] 0.4 mg PO BEDTIME 30 Days #30 cap.er Home Medications: Home Meds Budesonide/Formoterol Fumarate [Budesonide-Formoterol 160-4.5] 2 puff IH BID [History] Finasteride 5 mg PO DAILY 10/06/19 [History] Latanoprost 1 drop EYEBOTH BEDTIME 10/06/19 [History] Multivitamin with Minerals [Multiple Vitamin] 1 tab PO DAILY 10/06/19 [History] Omeprazole 20 mg PO DAILY 10/06/19 [History] Propylene Glycol [Systane Complete] 1 drop EYEBOTH DAILY 10/06/19 [History] Ranitidine [Zantac] 300 mg PO DAILY 10/06/19 [History] atorvaSTATin Calcium [Atorvastatin Calcium] 5 mg PO BEDTIME 10/06/19 [History] metFORMIN HCl [Metformin HCl ER] 1,000 mg PO DAILY 10/06/19 [History] Levofloxacin [Levaquin] 500 mg PO DAILY 7 Days #7 tablet 10/10/19 [Rx] Tamsulosin [Flomax] 0.4 mg PO BEDTIME 30 Days #30 cap.er 10/10/19 [Rx] Oxygen Therapy Mode: Room Air Forms: ED Department Discharge Referrals: PCP,Unobtain [Ordering Only Provider] - - Discharge Summary/Plan Comment DC Time >30 min.: Yes - General Info Date of Service: 10/10/19 Admission Dx/Problem (Free Text: Admission Diagnosis/Problem Admission Diagnosis/Problem Sepsis due to Urinary tract infectious disease Functional Status: Reports: Pain Controlled - Review of Systems General: Reports: No Symptoms HEENT: Reports: No Symptoms Pulmonary: Reports: No Symptoms Cardiovascular: Reports: No Symptoms Gastrointestinal: Reports: No Symptoms Genitourinary: Reports: No Symptoms Musculoskeletal: Reports: No Symptoms Skin: Reports: No Symptoms Neurological: Reports: No Symptoms Psychiatric: Reports: No Symptoms - Patient Data Vitals - Most Recent: Last Vital Signs Temp 99.8 F 10/10/19 08:13 Pulse 70 10/10/19 08:13 Resp 20 10/10/19 08:13 BP 111/69 10/10/19 08:13 Pulse Ox 98 10/10/19 08:13 Weight - Most Recent: 162 lb 12.8 oz I&O - Last 24 hours: Intake & Output 10/09/19 10/10/19 10/10/19 22:59 06:59 14:59 Intake Total 1150 202 340 Balance 1150 202 340 Lab Results - Last 24 hrs: Laboratory Results - last 24 hr 10/06/19 10/09/19 10/09/19 Range/Units 16:30 11:49 16:48 POC Glucose 107 143 H (83-110) mg/dl Procalcitonin 5.77 H (<0.10) ng/mL 10/09/19 10/10/19 Range/Units 20:47 07:59 POC Glucose 168 H 138 H (83-110) mg/dl Procalcitonin (<0.10) ng/mL KATHIE Results - Last 24 hrs: Microbiology 10/06/19 12:47 Coronavirus RNA (PCR) - Final Nasopharyngeal Swab 10/06/19 00:25 Aerobic Blood Culture - Preliminary Blood - Venous - Lab Draw NO GROWTH AFTER 3 DAYS Anaerobic Blood Culture - Preliminary NO GROWTH AFTER 3 DAYS 10/06/19 00:20 Aerobic Blood Culture - Preliminary Blood - Venous NO GROWTH AFTER 3 DAYS Anaerobic Blood Culture - Preliminary NO GROWTH AFTER 3 DAYS 10/06/19 11:45 Aerobic Blood Culture - Final Blood - Venous Escherichia Coli Anaerobic Blood Culture - Final Escherichia Coli 10/06/19 11:46 Aerobic Blood Culture - Final Blood - Venous - Lab Draw Escherichia Coli Anaerobic Blood Culture - Final Escherichia Coli Med Orders - Current: Current Medications Acetaminophen (Tylenol) 650 mg PO Q4H PRN PRN Reason: Pain (Mild 1-3)/fever Last Admin: 10/08/19 20:02 Dose: 650 mg Albuterol (Proventil Hfa) 0 gm INH Q4H PRN PRN Reason: Shortness of Breath Atorvastatin Calcium (Lipitor) 5 mg PO BEDTIME [facility] Last Admin: 10/09/19 20:39 Dose: 5 mg Docusate Sodium (Colace) 100 mg PO BID PRN PRN Reason: Constipation Enoxaparin Sodium (Lovenox) 40 mg SUBCUT DAILY [facility] Last Admin: 10/10/19 09:23 Dose: Not Given Famotidine (Pepcid) 20 mg PO BID [facility] Last Admin: 10/10/19 09:24 Dose: 20 mg Finasteride (Proscar) 5 mg PO DAILY [facility] Last Admin: 10/10/19 09:24 Dose: 5 mg Piperacillin Sod/Tazobactam (Sod 3.375 gm/ Sodium Chloride) 100 mls @ 200 mls/ hr IV Q6HR [facility] Last Infusion: 10/10/19 06:44 Dose: Infused Insulin Glargine (Lantus) 10 unit SUBCUT BEDTIME [facility] Last Admin: 10/09/19 21:09 Dose: 10 units Insulin Human Lispro (Humalog) 5 unit SUBCUT QIDACANDBED [facility] Last Admin: 10/10/19 09:24 Dose: 5 units Latanoprost (Xalatan 0.005% Ophth Soln) 0 ml EYEBOTH BEDTIME [facility] Last Admin: 10/09/19 20:40 Dose: 1 drop Magnesium Hydroxide (Milk Of Magnesia) 30 ml PO Q12H PRN PRN Reason: Constipation Mometasone Furoate/Formoterol Fumar (Dulera 200-5 Mcg) 2 puff IH BID [facility] Last Admin: 10/10/19 09:23 Dose: 2 puff Omeprazole (Omeprazole) 20 mg PO DAILY@0600 [facility] Last Admin: 10/10/19 05:47 Dose: 20 mg Ondansetron HCl (Zofran) 4 mg IVPUSH Q6H PRN PRN Reason: Nausea/Vomiting Potassium Chloride (Klor-Con 10) 40 meq PO BIDMEALS [facility] Last Admin: 10/10/19 09:22 Dose: 40 meq Sodium Chloride (Saline Flush) 10 ml FLUSH ASDIRECTED PRN PRN Reason: Keep Vein Open Last Admin: 10/10/19 05:47 Dose: 10 ml Tamsulosin HCl (Flomax) 0.4 mg PO BEDTIME [facility] Last Admin: 10/09/19 20:40 Dose: 0.4 mg Discontinued Medications Albuterol (Proventil Neb Soln) 2.5 mg NEB Q4H PRN PRN Reason: shortness of breath/wheezing Sodium Chloride (Normal Saline) 1,000 mls @ 999 mls/hr IV .BOLUS ONE Stop: 10/06/19 13:27 Last Infusion: 10/06/19 13:17 Dose: 250 mls/hr Ceftriaxone Sodium 1 gm/ (Sodium Chloride) 50 mls @ 100 mls/hr IV ONETIME ONE Stop: 10/06/19 13:17 Last Admin: 10/06/19 13:02 Dose: 100 mls/hr Sodium Chloride (Normal Saline) 1,000 mls @ 100 mls/hr IV ASDIRECTED [facility] Last Admin: 10/08/19 00:02 Dose: 100 mls/hr Azithromycin 500 mg/ Sodium (Chloride) 250 mls @ 250 mls/hr IV Q24H [facility] Last Admin: 03/27/20 17:36 Dose: 250 mls/hr Ceftriaxone Sodium 1 gm/ (Sodium Chloride) 100 mls @ 200 mls/hr IV Q24H [facility] Sodium Chloride (Normal Saline) 1,000 mls @ 999 mls/hr IV ASDIRECTED [facility] Stop: 10/06/19 17:01 Piperacillin Sod/Tazobactam (Sod 3.375 gm/ Sodium Chloride) 100 mls @ 200 mls/ hr IV Q6H [facility] Last Admin: 10/09/19 05:42 Dose: 200 mls/hr Sodium Chloride (Normal Saline) Confirm Administered Dose 100 mls @ as directed .ROUTE .STK-MED ONE Stop: 10/09/19 03:48 Last Admin: 10/09/19 04:31 Dose: Not Given Latanoprost (Xalatan 0.005% Ophth Soln) 0 ml EYEBOTH DAILY [facility] Last Admin: 10/07/19 08:32 Dose: Not Given Piperacillin Sod/Tazobactam Sod (Zosyn) Confirm Administered Dose 3.375 gm .ROUTE .STK-MED ONE Stop: 10/09/19 03:43 Last Admin: 10/09/19 04:30 Dose: Not Given - Exam General: Reports: Alert, Oriented HEENT: Reports: Pupils Equal, Pupils Reactive, EOMI, Mucous Membr. Moist/[place] Neck: Reports: Supple Lungs: Reports: Clear to Auscultation, Normal Respiratory Effort Cardiovascular: Reports: Regular Rate, Regular Rhythm GI/Abdominal Exam: Normal Bowel Sounds, Soft, Non-Tender, No Organomegaly, No Distention, No Abnormal Bruit, No Mass, Pelvis Stable (Male) Exam: No Hernia, Normal Inspection, Normal Prostate, Circumcised Rectal (Males) Exam: Normal Exam, Normal Rectal Tone, Prostate Normal Back Exam: Reports: Normal Inspection, Full Range of Motion Extremities: Normal Inspection, Normal Range of Motion, Non-Tender, No Pedal Edema, Normal Capillary Refill Skin: Reports: Warm, Dry, Intact Wound/Incisions: Reports: Healing Well Neurological: Reports: No New Focal Deficit Psy/Mental Status: Reports: Alert, Normal Affect, Normal Mood
== END 2019-10-10 10:30 | disposition home or self-care (01) | DRG 872 ==
LOC: DL.ED 11:35 → DL.MS 13:37
PROVIDERS: ADMIT Student in an Organized Health Care Education/Training Program; ATTEND Student in an Organized Health Care Education/Training Program
DX: A41.50 Gram-negative sepsis, unspecified (principal); N39.0 Urinary tract infection, site not specified; H91.8X2 Other specified hearing loss, left ear; J06.9 Acute upper respiratory infection, unspecified; Z85.3 Personal history of malignant neoplasm of breast; J45.909 Unspecified asthma, uncomplicated; R91.1 Solitary pulmonary nodule; H54.7 Unspecified visual loss; E11.9 Type 2 diabetes mellitus without complications; H91.92 Unspecified hearing loss, left ear; E78.00 Pure hypercholesterolemia, unspecified; Z95.2 Presence of prosthetic heart valve; K21.9 Gastro-esophageal reflux disease without esophagitis; J44.9 Chronic obstructive pulmonary disease, unspecified; E11.649 Type 2 diabetes mellitus with hypoglycemia without coma; Z79.899 Other long term (current) drug therapy; Z79.84 Long term (current) use of oral hypoglycemic drugs; Z85.46 Personal history of malignant neoplasm of prostate
CPT/HCPCS: 36415; 71250; 80053; 81001; 82728; 83605; 83615; 83735; 83880; 84100; 85025; 85379; 87040 ×4; 87077; 87086; 87088 ×2; 87186 ×3; 96365; 99284; 99285; J0696; J7030; J7050; 82962; 84145; 85027; 86140; 97162-GP; 97165-GO; A9270-GY; J0456; J1815; J1815-GY; J2543; U0002